=== PATIENT | female | born 1970 | race Caucasian/White ===

== ENCOUNTER 2019-03-23 13:42 | Inpatient (IN) | payer BC, OTHER ==
[2019-03-23] VITALS (20 sets, daily range): BP systolic 65–101; BP diastolic 38–67
[~2019-03-23] VITALS: Ht 165.1 cm; Wt 94.4 kg
--- NOTE | ~2019-03-23 | EMS ---
[facility] [address] [place] [address] EMS Patient Care Report Name: GILES CORTES Room #: 241-P ADM IN M.R.#: [id number] Admission: 03/23/19 Attend Phys: Chikis Mera MD Discharge: Date of : 70 Report #: [id number] THIS REPORT FOR: //name// Report Transmitted: 03/24/2019 08:58 EMS Care Summary [place], [place]/[facility] Incident [id number] @ 03/23/2019 13:03 Incident Location [id number] [place] [address] Patient GILES CORTES Female, 48 Years 1970 Patient Address [id number] [place] [address] Patient History Hypertension,Type 2 Diabetes, Patient Allergies No known allergies, Patient Medications Pravastatin, Metformin, Insulin, Chief Complaint Hot and chills Disposition Transported No Lights/[place] Reason Sick Person Transported To [facility] Narrative Arrived on scene for a 48 y/o female that is standing naked in the kitchen of the apt. Pt said that she hasn't been feeling well for a couple of days. Pt [facility] [address] [place] [address] EMS Patient Care Report Name: GILES CORTES Room #: 241-P ADM IN MJozef.#: [id number] Admission: 03/23/19 Attend Phys: Chikis Mera MD Discharge: Date of : 70 Report #: [id number] said that the last time she felt like this, she was septic from a UTI. Pt said that was earlier this month and she was admitted to the hospital because of this. Pt said that she is having no pain and currently not running a fever but the symptoms feel the same. Pt said that she does have dark urine with a strong odor with it. See Pt Assessment UTI See Flow Chart. Had the Pt put on some clothes. Moved the Pt to the cot. Transported non-emergent without incidents. Pt moved from cot to hospital bed with assistance. Transferred care to receiving facility. Initial Vitals @13:16P: 142,BP: 100/70, @13:34P: 129,R: 24,BP: 82/57,Pain: 0/10,GCS: 15,Revised Trauma: 11,SD Suspected: false @13:30P: 128,R: 24,BP: 80/51,GCS: 15,SpO2: 95,Revised Trauma: 11, Assessments @13:11MENTAL:Person Oriented,Time Oriented,Event Oriented,Place Oriented,SKIN:Pale,HEENT:Head/Face: No Abnormalities,Eyes: No Abnormalities,Neck/Airway: No Abnormalities,LUNG SOUNDS:General: Diarrhea,Left Upper: No Abnormalities,Right Upper: No Abnormalities,Left Lower: No Abnormalities,Right Lower: No Abnormalities,ABDOMEN:General: Diarrhea,Left Upper: No Abnormalities,Right Upper: No Abnormalities,Left Lower: No Abnormalities,Right Lower: No Abnormalities,PELVIS//GI:Pelvis GUOther,EXTREMITIES:Left Arm: No Abnormalities,Right Arm: No Abnormalities,Left Leg: No Abnormalities,Right Leg: No Abnormalities,PULSE:NEURO:No Abnormalities, Impression Urinary Tract Infection (UTI) Procedures @13:11ALS AssessmentResponse: Unchanged@13:20Saline Lock 0cc (20 ga) Site: Antecubital-LeftResponse: UnchangedFailed@13:183-Lead ECGResponse: Unchanged Timeline 13:01,Call Received 13:01,Dispatch Notified 13:03,Dispatched 13:05,En Route 13:10,On Scene 13:11,At Patient 13:11,ALS Assessment,Response: Unchanged [facility] [address] [place] [address] EMS Patient Care Report Name: GILES CORTES Room #: 241-P ADM IN .R.#: [id number] Admission: 03/23/19 Attend Phys: Chikis Mera MD Discharge: Date of : 70 Report #: [id number] 13:16,BP: 100/70 M,PULSE: 142,RR: R,SPO2: Ox,ETCO2: ,BG: ,PAIN: ,GCS: , 13:18,3-Lead ECG,Response: Unchanged 13:20,Saline Lock 0cc 20 ga Site: Antecubital-Left,Response: UnchangedFailed, 13:22,Depart Scene 13:30,BP: 80/51 M,PULSE: 128,RR: 24 R,SPO2: 95 Ox,ETCO2: ,BG: ,PAIN: ,GCS: 15, 13:34,BP: 82/57 M,PULSE: 129,RR: 24 R,SPO2: Ox,ETCO2: ,BG: ,PAIN: 0,GCS: 15, 13:36,At Destination 13:54,Call Closed Disclaimer v1.1 Copyright 2019 [employer] This EMS Care Summary contains data elements from the applicable legal record (which may be displayed differently). It is designed to provide pertinent information for the following purposes: continuity of care, clinical quality, and state data reporting. The complete legal record is available to ED staff and administrators of the receiving hospital in [employer]'s Patient Tracker. All data is provided "as is."
[2019-03-23 14:25] LABS: ABSOLUTE NEUTROPHILS 4.8 thou/uL (1.4-8.2); BASOPHILS 0.3 % (0.0-2.0); EOSINOPHILS 0.2 % (0.0-3.0); HEMATOCRIT 38.9 % (37.0-47.0); HEMOGLOBIN 12.9 gm/dL (12.0-15.0); MCH 33.4 pg (26.0-34.0); MCHC 33.1 g/dL (28.0-37.0); MCV 100.7 fL (80.0-100.0); PLATELET COUNT 120 thou/uL (150-400); POLYS 93.5 % (36.0-66.0); RBC 3.86 mil/uL (4.20-5.00); RDW 14.3 % (10.5-14.5); WBC 5.2 thou/uL (4.0-11.0)
[2019-03-23 14:34] LABS: CALCIUM 9.2 mg/dL (8.5-10.1); CREATININE 1.1 mg/dL (0.6-1.0); POTASSIUM 3.4 mmol/L (3.5-5.1)
[2019-03-23 14:40] LABS: ALBUMIN 2.9 g/dL (3.4-5.0); TOTAL BILIRUBIN 1.3 mg/dL (<0.1-1.0)
[2019-03-23] MEDS ORDERED: GLUCOPHAGE1000 MG PO (15:20)
[2019-03-23] MEDS ORDERED: EFFEXOR XR75 MG PO (15:20)
[2019-03-23] MEDS ORDERED: MAGOX 400400 MG PO (15:21)
[2019-03-23] MEDS ORDERED: PRAVACHOL20 MG PO (15:21)
[2019-03-23] MEDS ORDERED: LANTUSSOLASTAR SUBQ (15:21)
[2019-03-23] MEDS ORDERED: VITAMIN B-12500 MCG PO (15:22)
[2019-03-23 16:56] LABS: URINE BILIRUBIN 2+ (Negative); URINE BLOOD 2+ (Negative); URINE CLARITY CLEAR; URINE COLOR YELLOW; URINE GLUCOSE-RANDOM* 2+ (Negative); URINE KETONES 1+ (Negative); URINE NITRITE-REFLEX NEGATIVE (Negative); URINE PROTEIN (DIPSTICK) 2+ (Negative)
[2019-03-23 16:59] LABS: ICTOTEST (BILI CONFIRMATORY) Positive (Negative); URINE LEUKOCYTES-REFLEX 2+ (Negative)
[2019-03-23 17:07] LABS: BACTERIA-REFLEX >30 Many /HPF (None Seen); CASTS None Seen /LPF (None Seen); CRYSTALS None Seen /LPF (None Seen); SQUAMOUS 0-3 Few /LPF (0-3); URINE WBC-REFLEX >25 Many /HPF (0-5); YEAST-REFLEX Present (None Seen)
--- NOTE | 2019-03-23 17:58 | NUR ---
ATTEMPTED TO CALL REPORT AT 5079. NURSE NOT AVAILABLE AND IS TO CALL BACK
[2019-03-23 19:45] LABS: MAGNESIUM 1.4 mg/dL (1.8-2.4)
--- NOTE | 2019-03-23 20:00 | NUR ---
PT ADMITTED to ICU room 241 from ED. Hypotensive with SBP 60-70's. EP SPECIALIST notified and orders received. Pt alert, oriented x4. Monitor sinus rhythm.
[2019-03-24] VITALS (55 sets, daily range): BP systolic 73–148; BP diastolic 44–126
--- NOTE | 2019-03-24 06:41 | NUR ---
Slowly progressing toward goals. Map has remained > 60 without starting vasopressors. Urine output has increased from 10-20 cc/hr at admit to 40-50cc/hr. Pt had 900 cc total urine output for shift. Urine initially very cloudy with sediment but is beginning to clear. Insulin gtt titrated to keep blood sugar between 90-150, able to achieve this goal at 0500. Pt has slept well, has remained oriented x4 when awakened. No fever overnight. Skin intermittently clammy.
[2019-03-24 09:22] LABS: HEMATOCRIT 34.2 % (37.0-47.0); HEMOGLOBIN 11.5 gm/dL (12.0-15.0); MCH 33.8 pg (26.0-34.0); MCHC 33.5 g/dL (28.0-37.0); MCV 100.9 fL (80.0-100.0); RBC 3.39 mil/uL (4.20-5.00); RDW 14.6 % (10.5-14.5); WBC 7.4 thou/uL (4.0-11.0)
[2019-03-24 09:31] LABS: CALCIUM 8.7 mg/dL (8.5-10.1); CREATININE 0.8 mg/dL (0.6-1.0)
[2019-03-24 10:20] LABS: PHOSPHORUS 2.4 mg/dL (2.5-4.9)
--- NOTE | 2019-03-24 10:21 | NUR ---
VASCULAR ACCESS CONSULTED FOR PICC LINE BUT AFTER REVIEW OF MEDS, DISCUSSED WITH PTRISKS AND BENEFITS, MIDLINE MORE APPROPRIATE.PT VERBALIZED UNDERSTANDING AND CONSENT. LEONARDO BASILIC WAS WIDELY PATENT WITH USG. 4FR POWER MIDLINE TRIMMED TO 14CM INSERTED PER HOSPITAL P&P TO 0CM EXTERNAL,BRISK BR. ML RELEASED FOR IMMEDIATE USE PER PROTOCOL.
[2019-03-24 10:25] LABS: % SATURATION 21 % (20-39); IRON 38 ug/dL (50-170); TIBC 184 ug/dL (250-450)
--- NOTE | 2019-03-24 12:08 | 2DMMODE ---
[facility] [address] [place] [address] 2 D/M-MODE ECHOCARDIOGRAM Name: GILES CORTES Room #: 241-P ADM IN ..#: [id number] Admission: 03/23/19 Attend Phys: Chikis Mera Discharge: Date of : 70 Report #: [id number] THIS REPORT FOR: //name// APPROVED REPORT Study performed: 03/24/2019 11:18:02 EXAM: Comprehensive 2D, Doppler, and color-flow Echocardiogram Patient Location: ICU Room #: 241 Status: routine BSA: 1.95 HR: 86 bpm BP: 93/64 mmHg Rhythm: NSR Other Information Study Quality: Good Indications Fever, sepsis. Hx: DM, HTN, tob abuse. 2D Dimensions RVDd: 28.55 mm IVSd: 10.69 (7-11mm) LVOT Diam: 20.98 (18-24mm) LVDd: 50.66 mm PWd: 7.56 (7-11mm) Ascending Ao: 30.41 (22-36mm) LVDs: 44.09 (25-40mm) Aortic Root: 32.27 mm Volumes Left Atrial Volume (Systole) Single Plane 4CH: 41.59 mL Single Plane 2CH: 56.07 mL LA ESV Index: 27.00 mL/m2 Aortic Valve AoV Peak Shayan.: 1.22 m/s AO Peak Gr.: 5.95 mmHg LVOT Max P.29 mmHg LVOT Max V: 0.76 m/s ROMA Vmax: 2.15 cm2 Mitral Valve E/A Ratio: 1.7 MV Decel. Time: 130.24 ms MV E Max Shayan.: 0.97 m/s [facility] [address] [address] 2 D/M-MODE ECHOCARDIOGRAM Name: GILES CORTES Room #: [address] [place] [address] IN [facility].#: [id number] Admission: 03/23/19 Attend Phys: Chikis Mera Discharge: Date of : 70 Report #: [id number] MV A Shayan.: 0.58 m/s MV PHT: 37.77 ms IVRT: 57.67 ms Pulmonary Valve PV Peak Shayan.: 0.99 m/s PV Peak Gr.: 3.92 mmHg Pulmonary Vein P Vein S: 0.59 m/s P Vein D: 0.41 m/s P Vein S/D Ratio: 1.44 Tricuspid Valve TR Peak Shayan.: 2.39 m/s RAP Estimate: 10.00 mmHg TR Peak Gr.: 23.00 mmHg PA Pressure: 33.00 mmHg Left Ventricle The left ventricle is normal size. There is hypokinesis of the inferior wall. There is normal left ventricular wall thickness. Left ventricular systolic function is mildly decreased. LVEF is 45%. Right Ventricle The right ventricle is normal size. The right ventricular systolic function is normal. Atria The left atrium size is normal. The right atrium size is normal. Aortic Valve The aortic valve is normal in structure. No aortic regurgitation is present. There is no aortic valvular stenosis. Mitral Valve The mitral valve is normal in structure. Moderate mitral regurgitation. Tricuspid Valve The tricuspid valve is normal in structure. Mild tricuspid regurgitation. Estimated PAP is 30-35mmHg. Pulmonic Valve The pulmonary valve is normal in structure. Trace pulmonic regurgitation. [facility] [address] [place] [address] 2 D/M-MODE ECHOCARDIOGRAM Name: GILES CORTES Room #: 241-P [facility] IN M.R.#: [id number] Admission: 03/23/19 Attend Phys: Chikis Mera Discharge: Date of : 70 Report #: [id number] Great Vessels The aortic root is normal in size. The ascending aorta is normal in size. IVC is normal in size and collapses <50% with inspiration. Pericardium There is no pericardial effusion. <Conclusion> The left ventricle is normal size. There is normal left ventricular wall thickness. Left ventricular systolic function is mildly decreased. There is hypokinesis of the inferior wall. The right ventricle is normal size. The left atrium size is normal. The aortic valve is normal in structure. Moderate mitral regurgitation. Mild tricuspid regurgitation. Estimated PAP is 30-35mmHg. <ELECTRONICALLY SIGNED> By: Ramon Lee MD 03/24/19 1208 07 07 Ramon Lee MD /INF
--- NOTE | 2019-03-24 13:05 | NUR ---
CM ASSESSMENT: CASE OPENED FOR DC PLANNING. CLINICAL INFO REVIEWED. PT ADMITTED WITH SEPSIS. PT LIVES WITH SPOUSE AND IS CURRENTLY NOT WORKING AND ON SPOUSE'S INSURANCE. INDEPENDENT WITH ADLS, NO DME. HX DIABETES AND HTN, FOLLOWS AT [facility] FOR PRIMARY CARE AND WILL CONTINUE POST DC. WILL FOLLOW TO ASSIST WITH DC NEEDS.
--- NOTE | 2019-03-24 15:11 | NUR ---
Assess due to dx urosepsis. Pt with hx poor controlled diabetes for over 15 yrs per pt. A1C was indicated 11.7. Unintentional wt loss ~15 lb and fatigue likely due to hyperglycemia and acute illness. Starting on IV abx. On insulin drip. Appetite better and ordering meals. Physician has indicated moderate protein calorie malnutrition: RD will defer this dx. Consider low nutrition risk. RD education provided with education materials. Recommend endocronologist consult.
--- NOTE | 2019-03-24 15:12 | EKG ---
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
--- NOTE | 2019-03-24 18:15 | NUR ---
PT IS ALERT AND ORIENTED X4. LUNGS ARE CLEAR TO DIMINISHED. ON 3LITERS NASAL CANULA. EATING A CARB CONTROL DIET. CONSULTS ORDERED TODAY. VS STABLE. SINUS RHYTHM ON THE NATURAL FOODS CLERK. BAZAN TO DD WITH ORANGE COLOR URINE. TAKEN TO CAT SCAN FOR DIAGNOSTIC TESTING. FAMILY AT BEDSIDE FOR SUPPORT. BATH DONE THIS EVENING. TRANSFER ORDERS IN THE COMPUTER AWAITING A BED FOR TRANSFER.
--- NOTE | 2019-03-24 21:17 | NUR ---
Pt c/o of pressure radiating down left shoulder to elbow. Pt feels slightly SOA though on 2L canula and sat 100. Precinct Commanding Officer police liaison officer paged.
--- NOTE | 2019-03-24 22:27 | NUR ---
FOLLOW UP ON CHEST PAIN: Stat EKG done at [address] elevation or changes. NTG 0.4 mg sublingual given at 2124 and 2129 with decrease in chest/left arm pressure down to 2 from 4. Frankie Hatch NP also notifed at 2129 of change in pt condition, orders received. Pt given Morphine 4 mg IVP at 2137 with complete relief of chest/left arm discomfort by 2144. Pt given Tylenol for headache during this time period with adequate relief obtained. Troponin drawn at 2144 per orders and results called to Frankie Hatch. Dr. Flores returned page at 2154 and updated on events and pt. status. He requested not to be called troponin since it has been elevated since admit. Pt now sleeping comfortably, VS stable, monitor sinus tach. Status changed from med-surg tele to critical care tel per Frankie Hatch RN.
[2019-03-25] VITALS (22 sets, daily range): BP systolic 11–120; BP diastolic 37–89
--- NOTE | 2019-03-25 02:46 | NUR ---
Pt continues to rest without c/o. Monitor sinus rhythm. No further episodes of chest pain. Pt is hypotensive, SBP 80's and MAP in high 50's, but asymptomatic. Urine output > 30 cc/hr.
--- NOTE | 2019-03-25 11:32 | EKG ---
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 : 1970 Requested By: Jesse Lund Order Number: [id number] MD: Ezequiel Ravi Measurements Intervals [place] Rate: 120 P: 44 MN: 141 QRS: -11 QRSD: 100 T: QT: 327 QTc: 462 Interpretive Statements Sinus tachycardia Low voltage, extremity leads Nonspecific repol abnormality, diffuse leads Compared to ECG 03/24/2019 10:29:55 Early repolarization now present Sinus rhythm no longer present Electronically Signed On 03-25-2019 11:32:27 CDT by Ezequiel Ravi [email or web address] <ELECTRONICALLY SIGNED> By: Ezequiel Ravi MD 03/25/19 1132 16 16 Ezequiel Ravi MD /EPI
--- NOTE | 2019-03-25 13:23 | NUR ---
ASSUMED CARE OF PT AT 0700, PT IS A/O TIMES FOUR, DEIES PAIN OR DISCOMFORT. VSS, PT HAS BEEN AFIBRILE. ORDERS RCVD TO TRANSFER PT OUT OF ICU. REPORT GIVEN TO ACCEPTING NURSE. PT TRANSPORTED AND SETTLED IN NEW ROOM.
--- NOTE | 2019-03-25 16:45 | NUR ---
PT TO THE UNIT FROM THE ICU - ORIENTED TO BEDSPACE. ROCÍO DIET AND FLUIDS, MEDS PER AUG. - AMBULATING IN THE HALLS INDEPENDANTLY - STEADY ON FEET. NO CO'S OF PAIN OR NAUSEA. ASSESSMENT CHARTED - NO CO'S AT THE PRESNET TIME.
--- NOTE | 2019-03-26 03:03 | NUR ---
ASSUMED CARE FROM A DAY SHIFT PT UP TO BATHROOM VOIDING WITHOUT DIFF OR PAIN, CARDIAC MONTIOR SHOWS NSR , DISCUSSED PLAN OF CARE AND AGREEABLE AND VERBALIZED UNDERSTANDING. RESTING WELL THROUGHOUT HOURLY ROUNDS , WILL EPORT CHANGES OR ABNORMAL FINDINGS.
[2019-03-26 04:30] VITALS: BP 122/72
[2019-03-26 05:23] LABS: ABSOLUTE NEUTROPHILS 3.1 thou/uL (1.4-8.2); BASOPHILS 0.4 % (0.0-2.0); EOSINOPHILS 0.7 % (0.0-3.0); HEMATOCRIT 31.5 % (37.0-47.0); HEMOGLOBIN 10.4 gm/dL (12.0-15.0); LYMPHOCYTES 15.7 % (24.0-44.0); MCH 33.3 pg (26.0-34.0); MCHC 33.1 g/dL (28.0-37.0); MCV 100.9 fL (80.0-100.0); PLATELET COUNT 105 thou/uL (150-400); POLYS 72.2 % (36.0-66.0); RBC 3.12 mil/uL (4.20-5.00); RDW 14.3 % (10.5-14.5); WBC 4.3 thou/uL (4.0-11.0)
[2019-03-26 06:57] LABS: ALBUMIN 2.1 g/dL (3.4-5.0); CALCIUM 7.8 mg/dL (8.5-10.1); CREATININE 0.6 mg/dL (0.6-1.0); MAGNESIUM 1.5 mg/dL (1.8-2.4); POTASSIUM 3.6 mmol/L (3.5-5.1); TOTAL BILIRUBIN 0.6 mg/dL (<0.1-1.0); TOTAL PROTEIN 5.1 g/dL (6.4-8.2)
[2019-03-26 08:20] VITALS: BP 136/76
[2019-03-26 12:00] VITALS: BP 100/53
[2019-03-26 13:29] LABS: ABSOLUTE RETIC COUNT 0.0628 10^6/uL; OBSERVED RETIC COUNT 1.99 % (0.6-2.6)
[2019-03-26 13:42] LABS: APTT 31.2 Seconds (24.5-32.8); PROTIME 10.8 Seconds (9.3-11.4)
[2019-03-26 14:39] LABS: URINE BILIRUBIN NEGATIVE (Negative); URINE BLOOD TRACE (Negative); URINE CLARITY CLEAR; URINE COLOR YELLOW; URINE GLUCOSE-RANDOM* NEGATIVE (Negative); URINE KETONES NEGATIVE (Negative); URINE LEUKOCYTES-REFLEX TRACE (Negative); URINE NITRITE-REFLEX NEGATIVE (Negative); URINE PROTEIN (DIPSTICK) NEGATIVE (Negative); URINE SPECIFIC GRAVITY <= 1.005 (1.005-1.035)
[2019-03-26 16:00] VITALS: BP 124/82
--- NOTE | 2019-03-26 16:45 | NUR ---
ASSUMED CARE AT 0700, SHIFT ASSESSMENT DONE, MEDS GIVEN, VSS. DENIES ANY PAIN, NAUSEA, VOMITING. UP AD AVNI. RECEIVING IV FULIDS. NSR ON TELE, ROOM AIR. HAD A CT RECENTLY, POSSIBLY GOING TO [facility] TOMORROW VS WEDNESDAY. LEFT THE UNIT FOR AN HOUR PER DR EUBANKS, CAME OFF TELE AND IV. MG 1.5, REPLACEMENT IN PLACE. WILL CONTINUE TO ASSESS AND ASSIST WITH ADLs NEEDED.
[2019-03-26 19:37] VITALS: BP 118/60
[2019-03-26 23:05] LABS: HEMOGLOBIN 10.3 g/dL (11.1-15.9)
--- NOTE | 2019-03-27 03:25 | NUR ---
A/O X 4.UP INDEPENDENTLY.DENIES PAIN AND SOB.AFEBRILE SO FAR.POSSIBILITY OF CARDIAC CATH PROCEDURE.MONITOR SHOWS SINUS RHYTHM,SINUS TACHY.WILL MONITOR AND CONTINUE POC.
[2019-03-27 04:42] VITALS: BP 142/90
[2019-03-27 05:05] LABS: HEMATOCRIT 30.1 % (37.0-47.0); HEMOGLOBIN 10.2 gm/dL (12.0-15.0); MCH 33.7 pg (26.0-34.0); MCHC 33.8 g/dL (28.0-37.0); MCV 99.7 fL (80.0-100.0); PLATELET COUNT 110 thou/uL (150-400); RBC 3.02 mil/uL (4.20-5.00); RDW 14.1 % (10.5-14.5); WBC 3.8 thou/uL (4.0-11.0)
[2019-03-27 07:05] LABS: ABSOLUTE NEUTROPHILS 2.2 thou/uL (1.4-8.2); ANISOCYTOSIS SLIGHT; METAMYELOCYTES 1 %; MYELOCYTES 2 %
--- NOTE | 2019-03-27 07:57 | HC ---
[facility] [place] [address] CONSULTATION Name: GILES CORTES Room #: 211-P ADM IN M.R.#: [id number] Admission: 03/23/19 Attend Phys: Chikis Mera MD Discharge: Date of : 70 Report #: [id number] THIS REPORT FOR: //name// CC: Pierce Momin PODIATRIST FAM physician/PCP Ezequiel Mera MD REQUESTING PHYSICIAN: Chikis Mera MD REASON FOR CONSULTATION: Thrombocytopenia. HISTORY OF PRESENT ILLNESS: The patient is a pleasant 48-year-old female who had been at [facility] about a month ago for urosepsis and then recently had been at home and began having the same symptoms of fatigue, malaise, anorexia, dysuria. Her urine was darker than usual and also did not smell as good, came to the hospital for evaluation. Here, on admission, her platelet counts were 120 on 03/23/2019, 96 on 03/24/2019 and today, this went to 105. During the same time, her white count has been normal range around 43. Hemoglobins run around 10.4 with an MCV of 100.9. Differential showed an increase in segs and neutrophils. During the same time, her lab has also been notable for increase in transaminases, ALT of 76, AST 56, alkaline phosphatase 144, total bilirubin has been normal at 0.6, magnesium low at 1.5. Albumin low at 2.1. C-reactive protein quite elevated at 70.4. Sed rate elevated at 110. Also, note that she is macrocytic and red cells with an MCV of 100.9. Iron was slightly low at 38, TIBC low at 184, percent saturation 21, borderline low. These could be consistent with either mild iron deficiency or anemia of chronic illness. Folate was normal at 14. B12 normal at 709. Note that immature platelet fraction was 3.4, which is normal range, so some argue maybe it should be a little bit higher for her degree of mild thrombocytopenia but unclear. REVIEW OF SYSTEMS: The patient had not really had any dysuria. She said her urine had been dark and smelled a bit stronger than usual. Maybe some slight loose stools, no blood in her urine, no blood in her stool. No headache, no sore throat. No trouble moving, although she felt quite fatigued when walking around. Does have occasional bruising, but that is mostly arms and legs, usually fairly small, smaller than 1/4 or 1/2 dollar. No unusual bruising on her upper chest or neck. No recent nosebleeds. Weight has been down, she thinks, about 15 pounds, unintentionally. PAST MEDICAL HISTORY: Notable for the urosepsis, also the recent concern for a non-ST elevated [place]. Note that her echo is little bit off with a decreased inferior wall motion and there is some mild valve regurgitation. Past history is also of hypertension, diabetes, not very well controlled with reported hemoglobin A1c of 11.7. 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 Also had cholecystectomy and tonsillectomy. FAMILY HISTORY: Father had a pacemaker in his 20s, also a colostomy, she is not sure why. Mother has diabetes and knee troubles. No siblings, no children. SOCIAL HISTORY: Smokes about a pack and a half a day. Alcohol, rare to none. I think she declined street drugs or denied street drugs. 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 Has not been on disability, just is not currently working. I think she lives in the [facility]. PHYSICAL EXAMINATION: VITAL SIGNS: Height is 5 feet 5 inches, 165.1 cm; weight is 193.5 pounds or 87.8 kilograms. Recent blood pressure is 136/76, O2 sat 97%, pulse of 91. Current temperature 98.7, though it was up to 101.8 at 4:30 this morning and then 102 orally last night at 1742. GENERAL: The patient is alert and conversant, appears to be a reliable historian. HEENT: Oropharynx clear. Eyes symmetrical. Face symmetrical. NEUROLOGIC: Speech and thought pattern normal. SKIN: Has normal temperature. No obvious bruising except for IV sites, especially in her right arm. LYMPHATICS: No enlarged lymph nodes in the supraclavicular or cervical region. Note, she does have some very small lymph nodes beneath the right arm only. These may have been from multiple IVs at [facility], will bear watching. ABDOMEN: Slightly obese, nontender. No masses. EXTREMITIES: Without clubbing, cyanosis or edema. The patient's range of motion and inspection of muscles appears to be normal. MEDICATIONS: At this time, in the hospital include ciprofloxacin 250 b.i.d., began today; aspirin 81 mg daily; Tylenol 650 p.r.n.; nitroglycerin 1 tablet p.r.n. sublingual; insulin on a sliding scale; flu vaccine to be given; venlafaxine 75 mg daily; did receive a dose of cefepime on the and ____ today on the . MICROBIOLOGY: Urine is growing E. coli, sensitive to Cipro. IMAGING: Includes a CT for renal stone protocol that showed mildly prominent perinephric stranding. No definite hydronephrosis or obstructing stone. Portable chest x-ray showed no acute process. ASSESSMENT AND PLAN: 1. Thrombocytopenia, mild at 110-105 range. No prior knowledge of low platelets. No unusual bleeding, does have some slight bruises occasionally which do not seem extreme. Note, the patient has normal B12 folate. Iron may [address] [address] CONSULTATION Name: GILES CORTES Room #: [facility] ADM IN M.R.#: [id number] Admission: 03/23/19 Attend Phys: Chikis Mera MD Discharge: Date of : 70 Report #: [id number] be low range. We will check coags. This may be related to urosepsis or probably her liver function. We will also check a TSH and a peripheral smear. We will also ask to get records from [facility] and also [facility]. At this time, they are not dangerous. 2. Macrocytic anemia. We will check TSH and retic count. 3. Urosepsis due to Escherichia coli. No change to antibiotics with Cipro. 4. Question of mhh-LK-ekyxshnw myocardial infarction with decreased inferior wall motion on echo. Note that Dr. Ravi/Cardiology plans angiogram when better. 5. Diabetes type 2, appears to be poorly controlled. Does not check sugars very often. Agree with sliding scale insulin. We will defer to others. 6. Hypertension. Meds per others. 7. Tobaccoism. Encourage cessation, especially given her hypertension and diabetes. 8. Hyperlipidemia. Defer statins and dietary changes to others. 9. Obesity. Encouraged weight loss. 10. Mood. Continues Effexor. 11. Right axillary lymph nodes, most likely reactive. We will bear watching and followup. 12. Elevated liver function tests. We will need to follow for resolution. <ELECTRONICALLY SIGNED> By: Odilon Machuca MD 03/27/19 0757 1202 2248 Odilon Machuca MD /nt
[2019-03-27 08:00] VITALS: BP 128/77
[2019-03-27 09:36] LABS: CHOLESTEROL 117 mg/dL (<200); HDL CHOLESTEROL 20 mg/dL (>40); LDL CHOLESTEROL 74 mg/dL (<100); TC:HDL 5.9 Ratio (Not establshd); TRIGLYCERIDE 115 mg/dL (<150); VLDL 23 mg/dL (<40)
[2019-03-27 10:17] LABS: ANION GAP 10 mmol/L (7-16); BUN 4 mg/dL (7-18); CALCIUM 8.2 mg/dL (8.5-10.1); CHLORIDE 107 mmol/L (98-107); CO2 25 mmol/L (21-32); CREATININE 0.5 mg/dL (0.6-1.0); GLUCOSE 143 mg/dL (74-106); POTASSIUM 3.1 mmol/L (3.5-5.1); SGOT 43 U/L (15-37); SGPT 61 U/L (30-65); SODIUM 142 mmol/L (136-145); TOTAL BILIRUBIN 0.5 mg/dL (<0.1-1.0); TOTAL PROTEIN 5.3 g/dL (6.4-8.2)
--- NOTE | 2019-03-27 10:46 | HC ---
[facility] [place] [address] CONSULTATION Name: GILES CORTES Room #: 211-P ADM IN M.R.#: [id number] Admission: 03/23/19 Attend Phys: Chikis Mera MD Discharge: Date of : 70 Report #: [id number] THIS REPORT FOR: //name// CC: AUNG physician/PCP Chikis Mera DATE OF SERVICE: 03/24/2019 INFECTIOUS DISEASE CONSULTATION REASON FOR CONSULTATION: I was asked to evaluate concerning sepsis. HISTORY OF PRESENT ILLNESS: The patient is a 48-year-old underlying history of diabetes, hypertension, who presents with fever, chills, hypotension to the Emergency Room on 03/23/2019. She has poorly controlled diabetes. She has been on medication, although does not check her sugars at home. Three weeks ago, she was hospitalized at [facility] with urosepsis and discharged on 03/08/2019. Received IV antibiotics and dismissed on oral antibiotics for another 4-5 days. She could not recall the medication. Following completion of her antibiotics, she felt well. She does not recall any imaging of her abdomen during that hospital stay. She did have some cardiac ischemia and underwent echocardiogram and electrocardiogram. She reports no cardiac followup recommended. Her last hemoglobin A1c was 11.7. She is obese. She has had urinary tract infections when she was younger, but no other issues with this. She has had no history of nephrolithiasis. In the remote past, she had hysterectomy, bilateral salpingo-oophorectomy, where she was diagnosed with 40-pound ovarian tumor. She states that this was benign. REVIEW OF SYSTEMS: She has had no dysuria. She did have some urinary hesitancy and inability to void prior to her admission. Denied any back or flank pain. She was nauseated. She had some loose stools. No blood in her urine. Denies any cough or sputum production. She has had no rashes or decubiti. Denies any adenopathy. No psychiatric issues. Full 10-point review of system was negative other than what has been described above. ALLERGIES: None known. MEDICATIONS: As noted on her MAR including Effexor, Glucophage, Lantus insulin, Pravachol, magnesium oxide, and vitamin B12. She was started on IV fluids at admission and was given cefepime. PAST MEDICAL HISTORY: Diabetes, hypertension, urinary tract infection, previous hysterectomy, bilateral salpingo-oophorectomy, cholecystectomy, tonsillectomy. FAMILY HISTORY: Noncontributory. [address] [address] CONSULTATION Name: GILES CORTES Room #: 211-P [facility] IN .R.#: [id number] Admission: 03/23/19 Attend Phys: Chikis Mera MD Discharge: Date of : 70 Report #: [id number] SOCIAL HISTORY: Lives with her , smoker of cigarettes. No significant alcohol intake or IV drug use. PHYSICAL EXAMINATION: VITAL SIGNS: Afebrile, heart rate 72, respiratory rate 18 on 3 liters of oxygen per nasal cannula, blood pressure 93/64. GENERAL: She was moderately obese. SKIN: Without rash or decubitus. She did have a tattoo to her lower back. No palpable adenopathy. EYES: Without scleral icterus. MOUTH: Without mucositis. NECK: Supple, with no thyromegaly or mass. LUNGS: Clear. HEART: Regular, without murmur, gallop or rub. ABDOMEN: Soft, nontender, no hepatosplenomegaly or mass. No CVA tenderness. GENITOURINARY: External genitalia unremarkable with no mass or lesion. She had indwelling Rowe catheter. RECTAL EXAMINATION: Not performed. EXTREMITIES: Without clubbing, cyanosis or edema. Pulses were full throughout. NEUROLOGIC: Cranial nerves intact. Strength in upper and lower extremities was normal. Mood was normal. LABORATORY STUDIES: Sodium 140, potassium 4, bicarbonate 25, creatinine 0.8. Blood glucose has been running 155-384, AST 58, ALT 43, alkaline phosphatase 240, bilirubin 1.3, albumin at 2.9. Troponin is 1.15. Hemoglobin 11.5, WBC 7.4 with unremarkable differential, platelet count 96,000. ESR was 97. Rheumatoid factor is negative. B12 and folate are normal. Cortisol is 77. Urinalysis, many wbc's, many bacteria, protein was 2+, yeast was present. Blood and urine cultures are pending. Chest x-ray was clear. IMPRESSION: A 48-year-old diabetic poorly controlled with recurrent urinary tract infection, having completed her course of therapy 10 days ago. We would be concerned about possible upper tract abnormality. She has had a previous hysterectomy and ovarian tumor resected. In addition, the patient has poorly controlled diabetes. Her sepsis is better controlled now with IV fluids. She has evidence of cardiac ischemia, being further evaluated by Cardiovascular medicine. RECOMMENDATIONS: We will continue cefepime full dose, pending cultures of blood and urine. Would obtain records from [facility] for their previous workup and cultures. Continue with IV fluids. Further imaging with CT scan of the abdomen and pelvis to ensure no ureteral obstruction or further [address] [address] CONSULTATION Name: GILES CORTES Room #: 211-P [facility] IN [facility].#: [id number] Admission: 03/23/19 Attend Phys: Chikis Mera MD Discharge: Date of : 70 Report #: [id number] complications from urinary tract infection. Serial laboratory studies including CMP to follow her liver function tests and creatinine. <ELECTRONICALLY SIGNED> By: Pierce Gordon MD 03/27/19 1046 [id number] Pierce Gordon MD /
[2019-03-27 11:38] VITALS: BP 141/81
[2019-03-27 13:11] LABS: ANA INTERPRETATION Negative (Negative)
[2019-03-27 16:44] VITALS: BP 136/77
--- NOTE | 2019-03-27 17:28 | NUR ---
VSS REMAINS NSR. T MAX TODAY 98.2, LUNGS CLEAR RA SAT IS 96%, UP IN ROOM AND HALLS AND TOLERATED WELL WITHOUT C/O CHEST PAIN. WILL CONTINUE TO MONITER AND CARE FOR PT PER PLANOF CARE
[2019-03-27 19:50] VITALS: BP 136/79
[2019-03-27 23:44] VITALS: BP 115/54
[2019-03-28] VITALS (7 sets, daily range): BP systolic 113–139; BP diastolic 66–83
--- NOTE | 2019-03-28 02:59 | NUR ---
ASSESSMENT: PT REMAIN ALERT AND ORIEN TIMES FOUR. UP AD AVNI. DENIES PAIN. STILL LOW GRADE TEMP THUS FAR THIS SHIFT. NPO AT ND FOR POSSIBLE CATH. SLOW PROGRESS TOWARDS DC GOALS, WILL CONTINUE TO MONITOR.
[2019-03-28 05:43] LABS: HEMATOCRIT 31.6 % (37.0-47.0); HEMOGLOBIN 10.4 gm/dL (12.0-15.0); MCHC 33.1 g/dL (28.0-37.0); MCV 99.9 fL (80.0-100.0); PLATELET COUNT 130 thou/uL (150-400); RBC 3.16 mil/uL (4.20-5.00); WBC 4.4 thou/uL (4.0-11.0)
[2019-03-28 08:45] LABS: ABSOLUTE NEUTROPHILS 2.7 thou/uL (1.4-8.2); METAMYELOCYTES 2 %
--- NOTE | 2019-03-28 08:45 | NUR ---
RECEIVED FROM PUBLIC FINANCE SPECIALIST. VSS NSR R GROIN SITE WITHOUT HEMATOMA OR BRUIT. INSTRUCTED BEDREST X 3 HOURS. SEE DATA FLOW SHEET FOR FREQUENT VS AND GROIN CHECKS. WILL CONTINUE TO MONITER AND CARE FOR PTPER PLAN OF CARE
[2019-03-28 08:46] LABS: PLATELET ESTIMATE NORMAL
--- NOTE | 2019-03-28 09:46 | CATHLAB ---
[facility] [address] [place] [address] INVASIVE PROCEDURE REPORT Name: GILES CORTES Room #: 211-P ADM IN .R.#: [id number] Admission: 03/23/19 Attend Phys: Chikis Mera Discharge: Date of : 70 Report #: [id number] THIS REPORT FOR: //name// APPROVED REPORT Study performed: 03/28/2019 07:46:55 Patient Details Patient Status: In-Patient Room #: The patient is a 48 year-old female Event Personnel Ramon Lee Photostat Operator, Dulce White RN, Seema Hammer RN RN, Tracy Diaz Monitor, Gretel Torrez RTR Scrub, Nilesh Miller RTR Monitor Procedures Performed Art Access - R femoral artery* Left Heart Cath w/or w/o Coronaries 5341137 [facility] 10183 Initial Mod Sed Same Phys/QHP Gr5y 165754 36697 Mod Sed Same Phys/QHP Ea 012068 Hemostasis with Manual pressure Indication Non-STEMI , Dyspnea, Chest pain Risk Factors Obesity, Hypercholesterolemia, Hypertension, Diabetes Tobacco History () Procedure Narrative The Right Groin^ was infiltrated with 1% Lidocaine subcutaneous anesthesia. A PINNACLE 4FR Sheath #[id number] sheath was inserted into the RFA^. Coronary angiography was performed using coronary diagnostic catheters. The right coronary system was accessed and visualized with a JR4 catheter. The left coronary system was accessed and visualized with a JL4 catheter. The left ventricle was accessed and visualized with a Pigtail catheter. Left ventriculogram was performed in 30 degree projection. Hemostasis was obtained with manual pressure following sheath removal without any complications. The patient tolerated the procedure well and there were no complications associated with the procedure. There was no hematoma. Intraoperative Conscious Sedation Sedation start time: 8:13 Case end Time: [facility] [address] [place] [address] INVASIVE PROCEDURE REPORT Name: GILES CORTES Room #: 211-P ADM IN M.R.#: [id number] Admission: 03/23/19 Attend Phys: Chikis Mera Discharge: Date of : 70 Report #: [id number] 8:41 Fentanyl 50 mcg Versed 1 mg Fluoro Time: 2.48 minutes Dose: DAP 5642.30 cGycm2 650 mGy Contrast Type and Amount: Omnipaque 105 ml Coronary Angiography The patient's coronary anatomy is right dominant. Diagnostic Cath Left Main This is a large caliber vessel, with no flow-limiting lesions. LAD This is a moderate size caliber vessel, traversing the anterior wall and wrapping around the apex. There is a severe stenosis in the proximal segment, 70%. The mid segment is relatively patent. The distal segment has moderate diffuse disease. Diagonal 1 This is small to moderate size caliber vessel with a severe stenosis at the ostium, 80%. Circumflex After giving off a moderate size OM1 vessel, there is a severe occlusion of the proximal left circumflex artery, 80%. OM1 Has an early takeoff from the left circumflex artery, with mild disease in the midsegment. OM2 There is a severe occlusion in the proximal segment, 80%. Right Coronary This is a dominant vessel with a total occlusion in the proximal segment. The distal branches are filled via collateral circulation from the left coronary artery. Left Ventriculography The left ventricle is mildly dilated in size with decreased contractility. The left ventricular ejection fraction is estimated to be 40%. There is hypokinesis of the inferior wall. Hemodynamics The aortic pressure is 153/92 mmHg with a mean of 117 mmHg. The left ventricular pressure is 159/36 mmHg with a mean of mmHg. The left ventricular end diastolic pressure is 40 mmHg. Conclusion 1. Severe three-vessel coronary artery disease 2. Right dominant system. [facility] [address] [place] [address] INVASIVE PROCEDURE REPORT Name: GILES CORTES Room #: 211-P [facility] IN ..#: [id number] Admission: 03/23/19 Attend Phys: Chikis Mera Discharge: Date of : 70 Report #: [id number] 3. Moderate segmental LV dysfunction. 4. Recommend CV surgical consultation. <ELECTRONICALLY SIGNED> By: Ramon Lee MD 10/07/16 944 4 4 Ramon Lee MD /ROSE MARY
--- NOTE | 2019-03-28 14:21 | NUR ---
VSS NSR LUNGS CLEAR RA SAT IS 96%, UP IN ROOM AFTER HT CATH NO C/O CHEST PAIN. R GROIN SITE WITHOUT HEMATOMA OR BRUIT. WILL CONTINUE TO MONITER AND CARE FOR PTPER PLANOF CARE
[2019-03-29 03:37] VITALS: BP 122/64
--- NOTE | 2019-03-29 04:51 | NUR ---
ASSUMED PT CARE AT 1900. PT VSS AND NO C/O PAIN. CATH SITE C/D/I WITH NO HEMATOMA AND SOFT. PT WILL BE DISCHARGED AND RETURNING FOR [facility]. WILL CONTINUE TO MONITOR PT TOWARD POC.
[2019-03-29 06:11] LABS: HEMATOCRIT 32.7 % (37.0-47.0); HEMOGLOBIN 10.9 gm/dL (12.0-15.0); MCH 33.2 pg (26.0-34.0); MCHC 33.4 g/dL (28.0-37.0); MCV 99.4 fL (80.0-100.0); PLATELET COUNT 150 thou/uL (150-400); RBC 3.29 mil/uL (4.20-5.00); RDW 14.4 % (10.5-14.5); WBC 4.2 thou/uL (4.0-11.0)
[2019-03-29 06:29] LABS: CALCIUM 8.4 mg/dL (8.5-10.1); CREATININE 0.5 mg/dL (0.6-1.0); POTASSIUM 3.5 mmol/L (3.5-5.1)
[2019-03-29 08:57] LABS: ABSOLUTE NEUTROPHILS 2.3 thou/uL (1.4-8.2); PLATELET ESTIMATE NORMAL
[2019-03-29] MEDS ORDERED: CIPRO500 MG PO (10:42)
[2019-03-29] MEDS ORDERED: LIPITOR40 MG PO (10:42)
[2019-03-29] MEDS ORDERED: METOPROLOL SUCC25 M1 PO (10:43)
[2019-03-29] MEDS ORDERED: ASA81BEC PO (10:43)
[2019-03-29] MEDS ORDERED: PEPCID20 MG PO (10:44)
[2019-03-29 12:44] VITALS: BP 130/81
[2019-03-29 14:59] VITALS: BP 130/81
--- NOTE | 2019-03-29 16:24 | NUR ---
ASSESSMENT CHARTED - MEDS PER AUG - ACCUCHECKS COVERED PER HDSSI. NO CO'S OF PAIN OR NAUSEA. ROCÍO DIET AND FLUIDS. UP AD AVNI IN ROOM AND ON THE UNIT. PT SEEN BY ENDOCRINE DOCTOR THIS AM ORDERED. PT TO HOME THIS AFTERNOON. INSTRUCTION RE HOME MEDS/ CARE AND FOLLOW UP GIVEN TO PATIENT - STATED UNDERSTANDING OF INSTRUCTION. MIDLING AND MONITOR REMOVED PRIOR TO D/C. LEFT UNIT BEVERLY WHEELCHAIR - HOME VIA PVT VEHICLE ACCOMPANIED BY FRIEND. NO CO'S AT TIME OF D/C.
[2019-03-30 01:08] LABS: GLYCOHEMOGLOBIN (HGB A1C) 8.6 % (4.8-5.6)
--- NOTE | 2019-03-30 13:04 | HC ---
[facility] [place] [address] CONSULTATION Name: GILES CORTES Room #: 211-P [facility] IN ..#: [id number] Admission: 03/23/19 Attend Phys: Chikis Mera MD Discharge: 03/29/19 Date of : 70 Report #: [id number] THIS REPORT FOR: //name// CC: AUNG physician/PCP Chikis Mera DATE OF SERVICE: 03/29/2019 ENDOCRINE CONSULTATION NOTE CONSULTING PHYSICIAN: Dr. Green. REASON FOR CONSULTATION: Uncontrolled type 2 diabetes mellitus. HISTORY OF PRESENT ILLNESS: This is a 48-year-old female patient whose medical background is primarily noted for type 2 diabetes mellitus that was diagnosed 15-20 years ago. The patient notes that she has been placed on Lantus insulin 10 units daily a few weeks ago in addition to her ongoing therapy with metformin 1000 mg b.i.d. Prior to that, the patient was on glipizide, but this was discontinued during a recent admission for sepsis at [facility]. The patient admits to hardly ever monitoring her blood glucose at home and notes that she has just barely purchased a blood glucose meter. She does perform routine eye examinations and is not aware of issues of diabetic retinopathy, but does have early cataract changes. The patient does not report ongoing complications of neuropathy, diabetic nephropathy, and prior to this admission, has not known about coronary artery disease. The patient was admitted on 03/23/2019 and an outlook is consistent with sepsis in the setting of UTI and was admitted for further care and monitoring and was admitted to the ICU for hypotension where she was resuscitated. Following that, her troponin was elevated and she underwent a coronary angiogram, which revealed multivessel disease and it was determined that she would be best served by coronary artery bypass grafting. The patient is being discharged today with a plan to return next week for a CABG procedure. REVIEW OF SYSTEMS: CONSTITUTIONAL: Intermittent issues with fatigue and tiredness and recent issues with fever and chills surrounding her admission. No significant body weight changes as of lately. HEENT: Negative for sore throat, sinus congestion, ear pain, ear drainage. PULMONARY: Intermittent shortness of breath, especially on exertion. No major or frequent difficulties with cough or hemoptysis. CARDIAC: No chest pain or palpitations, syncope or presyncope. GASTROINTESTINAL: Occasional abdominal distention, nausea, but no vomiting or chronic changes in bowel movement frequency. [address] [address] CONSULTATION Name: GILES CORTES Room #: 211-P [facility] IN M.R.#: [id number] Admission: 03/23/19 Attend Phys: Chikis Mera MD Discharge: 03/29/19 Date of : 70 Report #: [id number] NEUROLOGY: Negative for loss of consciousness, headaches or seizure activity. DERMATOLOGY: Negative for skin rash, irritation, ulceration or other changes. PSYCHOLOGY: Negative for hallucinations, delusions, depression. Otherwise, review of systems is noncontributory other than those mentioned in HPI. PAST MEDICAL HISTORY: 1. Type 2 diabetes mellitus. 2. Hypertension. 3. Hyperlipidemia. 4. Obesity. 5. Recent diagnosis of coronary artery disease as noted above with NSTEMI. 6. Ischemic cardiomyopathy diagnosed during this admission. 7. Thrombocytopenia diagnosed during this admission. DISCHARGE MEDICATIONS: Lantus insulin 14 units q. p.m., metformin 1000 mg b.i.d., atorvastatin 40 mg daily, metoprolol XL 25 mg daily, aspirin 81 mg daily, famotidine 20 mg daily. ALLERGIES: No known drug allergies. FAMILY HISTORY: Noted for multiple family members with type 2 diabetes mellitus. SOCIAL HISTORY: She is , does not have children. 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 She smokes 1 to 1-1/2 packs per day. Denies use of alcohol. PHYSICAL EXAMINATION: GENERAL: Pleasant female patient who is not in apparent pain or distress. VITAL SIGNS: Blood pressure is 137/91 mmHg, heart rate of 70 beats per minute, respirations 18 per minute, temperature of 36.4 degrees. CONSTITUTIONAL: No pain distress. The patient seems comfortable. HEENT: Anicteric sclerae. Intact extraocular motions. NECK: Supple, without JVD, carotid bruits or lymphadenopathy. I do not appreciate thyromegaly. CHEST: Noted for moderate air entry bilaterally with scattered rales. HEART: Regular rate and rhythm without murmurs or gallops. ABDOMEN: Soft and lax without tenderness or organomegaly. She has active bowel sounds. EXTREMITIES: Lower extremity exam is negative for ankle edema. The patient has good pulses bilaterally. NEUROLOGIC: Awake, alert and oriented to time, place and person. The remainder of her examination is grossly nonfocal. [facility] [address] [facility] [place] [address] CONSULTATION Name: GILES CORTES Room #: [facility]-P [facility] IN M.R.#: [id number] Admission: 03/23/19 Attend Phys: Chikis Mera MD Discharge: 03/29/19 Date of : 70 Report #: [id number] PSYCHIATRIC: Pleasant, interactive appropriate. No hallucinations. SKIN: No rash, ulceration or other gross abnormalities. LABORATORY STUDIES: The patient notes that her most recent hemoglobin A1c done a few weeks ago was 11.7. Blood glucose here has ranged from 160-200 mg/dL for the most part. Hemoglobin 10.9, white blood count 4.2, platelets 150. Sodium 142, potassium 3.5, chloride 105, carbon dioxide 29, anion gap of 8, BUN 8, creatinine 0.5, GFR 132, glucose 196, calcium 8.4. Vitamin D 30.9, albumin 2.0. ASSESSMENT AND PLAN: 1. Type 2 diabetes mellitus. As noted above, the patient has a baseline that is remarkable for poorly controlled diabetes mellitus and the patient admittedly notes that she took very little interest in managing or monitoring her disease over the past years. Her most recent hemoglobin A1c done in the outpatient setting is indicative of severe persistent hyperglycemia. The patient and I had a lengthy discussion about the necessity of better glycemic control towards preventing future microvascular or macrovascular complications, which she seems to be rather conscious of. Interestingly, the patient was managed here with Humalog supplemental scale only and has maintained blood glucose values that were mostly within or close to the desired target range of 100-180 mg/dL. This goes to indicate the significant impact of lifestyle on her glycemic outlook, which she understood well. The patient is being discharged today and is being planned for a coronary artery bypass graft in a week from now. Given this short timeframe prior to surgery, I will have the patient go home on a combination of metformin 1000 mg daily, Lantus insulin 14 units daily with a plan to monitor her blood glucose values closely at home and contact me should she need help adjusting her regimen to achieve a short-term target of ____ mg/dL. Once her surgery is concluded and as she enters into her recovery period afterwards, I would be rather interested in the inclusion of antidiabetic agents that have an edge in cardiovascular disease prevention such as Jardiance or Victoza. I have discussed this with the patient and she understands that this would be a consideration to be made following her discharge postoperatively. 2. Hyperlipidemia. I fully agree with a change to high intensity statin agent on discharge given the patient's documentation of coronary artery disease and type 2 diabetes mellitus. I stressed the importance of adequate and maintained lipid control going forward. 3. Hypertension. [address] [address] CONSULTATION Name: GILES CORTES Room #: 211-P [facility] IN M.R.#: [id number] Admission: 03/23/19 Attend Phys: Chikis Mera MD Discharge: 03/29/19 Date of : 70 Report #: [id number] The patient is being released on metoprolol. She is advised to maintain that. 4. Coronary artery disease. As noted above, the patient had sustained a non-ST elevation myocardial infarction and is being planned for an open heart coronary artery bypass grafting next week. I counseled the patient about the necessity of adjusting risk factors for coronary artery disease including type 2 diabetes mellitus, hypertension, hyperlipidemia and smoking, which she understood well. I certainly appreciate this consultation by Dr. Green. <ELECTRONICALLY SIGNED> By: Kirstie Brock MD 03/30/19 1304 [id number] MD jennifer Waller
--- NOTE | 2019-04-04 15:57 | HC ---
[facility] [place] [address] CONSULTATION Name: GILES CORTES Room #: [facility] IN M.R.#: [id number] Admission: 03/23/19 Attend Phys: Chikis Mera MD Discharge: 03/29/19 Date of : 70 Report #: [id number] THIS REPORT FOR: //name// CC: AUNG physician/PCP Chikis Mera CARDIOLOGY CONSULTATION REASON FOR CONSULTATION: Elevated troponin. HISTORY OF PRESENT ILLNESS: The patient is a 48-year-old female with history of diabetes mellitus type 2, hypertension, tobacco abuse, recently discharged from [facility] after having urosepsis. Over the past several days, she has had increased fatigue, fevers, chills and she presented here to the Emergency Room and was noted to have a fever. She was admitted to the ICU with presumed recurrent urosepsis. She denies any chest pain or chest tightness. She denies PND or orthopnea. She does have some mild exertional dyspnea, which is chronic in nature. She denies presyncope or syncope. REVIEW OF SYSTEMS: A 12-point review of systems was performed. GENERAL: She has been having fevers or chills. HEENT: No blurred vision. CARDIOVASCULAR: As above. PULMONARY: No productive cough. GASTROINTESTINAL: She has been having some nausea, no abdominal pain. GENITOURINARY: No dysuria. MUSCULOSKELETAL: No myalgias or arthralgias. ENDOCRINE: No heat or cold intolerance. NEUROLOGIC: No focal weakness. PAST MEDICAL HISTORY: As above. SOCIAL HISTORY: She does smoke. FAMILY HISTORY: Noncontributory. ALLERGIES: None. MEDICATIONS: Include Effexor, metformin, insulin, pravastatin, magnesium, vitamin B12. PHYSICAL EXAMINATION: VITAL SIGNS: Temperature is 36.5, pulse 72, respirations 18, blood pressure is currently 93/64, sats 100%. GENERAL: In no acute distress, alert and oriented x 3. HEENT: Her sclerae are anicteric. Oropharynx is clear. NECK: Supple, no thyromegaly, no carotid bruits. [facility] [address] [place] [address] CONSULTATION Name: GILES CORTES Room #: 211-P [facility] IN M.R.#: [id number] Admission: 03/23/19 Attend Phys: Chikis Mera MD Discharge: 03/29/19 Date of : 70 Report #: [id number] HEART: Regular rate and rhythm with no murmurs, rubs or gallops. LUNGS: Clear to auscultation bilaterally. ABDOMEN: Soft, nontender, nondistended, no hepatosplenomegaly. EXTREMITIES: There is no clubbing, cyanosis, edema. NEUROLOGICAL: Cranial nerves 2-12 are intact. LABORATORY DATA: White count 7, hemoglobin 11, platelets 96. Chemistries: Sodium 140, potassium 4, BUN 19, creatinine 0.8. Troponin initially was 0.5, repeat was 1.1. Chest x-ray shows no acute process. Her 12-lead EKG shows normal sinus rhythm with normal intervals, no ischemic changes. Telemetry shows normal sinus rhythm. Her echocardiogram shows an EF of 45% with some possible inferior wall hypokinesis. ASSESSMENT: 1. Possible non-ST segment elevation myocardial infarction. 2. Sepsis. 3. Urosepsis. 4. Thrombocytopenia. 5. Left ventricular systolic heart failure with reduced EF of 45%. ASSESSMENT AND PLAN: In summary, the patient is a 48-year-old with diabetes, hypertension, tobacco abuse, who presents with sepsis and has an elevated troponin. The etiology of this is unclear. This may be related to sepsis, but could also be related to significant CAD. She does have mildly decreased LV function and possibly an inferior wall motion abnormality. I have recommended that when she is improved from urosepsis, we will recommend stress testing. If this is abnormal, we will proceed with a diagnostic heart catheterization. She understands this and is willing to proceed. <ELECTRONICALLY SIGNED> By: Ezequiel Ravi MD 04/04/19 1557 1302 [id number] Ezequiel Ravi MD /nt
--- NOTE | 2019-04-06 13:11 | HC ---
[facility] [place] [address] CONSULTATION Name: GILES CORTES Room #: 211-P [facility] IN M.R.#: [id number] Admission: 03/23/19 Attend Phys: Chikis Mera MD Discharge: 03/29/19 Date of : 70 Report #: [id number] THIS REPORT FOR: //name// CC: AUNG physician/PCP Chikis Mera DATE OF SERVICE: 03/28/2019 HISTORY OF PRESENT ILLNESS: We were asked by Dr. Lee to see the patient. The patient is a 48-year-old with coronary artery disease. The patient had cardiac catheterization today that shows severe 3-vessel coronary disease, including a total occluded right coronary artery filled by left to right collaterals that appears to be the culprit vessel from a recent infarct. The patient states that her history began with intermittent chest pain radiating to the left arm over the last month or so, approximately 2 weeks ago. The patient was admitted to [facility] with urinary sepsis. This was treated and the patient discharged, but she was admitted to this institution on 03/23/2019 with recrudescence of sepsis at this time with fever, chills, lethargy, temperature 101 prior to admission. The patient also noted urinary retention and frequency with foul-smelling urine. The patient also described a 15-pound unintentional weight loss and last hemoglobin A1c was 11.7. PAST MEDICAL HISTORY: Significant for diabetes, hypertension, and hypercholesterolemia in addition to the recent issues. MEDICATIONS: At home includes Effexor, Glucophage, insulin, pravastatin, magnesium and vitamin B12. ALLERGIES: None known. SOCIAL HISTORY: Significant for tobacco use. The patient denies alcohol use. REVIEW OF SYSTEMS: CONSTITUTIONAL: As mentioned, the patient had fever at home with lethargy and malaise, also describes a 15-pound unintentional weight loss. EYES: Wears glasses. No vision change. HEENT: No hearing changes. No sinus issues or headache. RESPIRATORY: Denies cough, shortness of breath. CARDIAC: No chest pain or palpitations, but describes angina and left shoulder pain prior to the [place] admission. GASTROINTESTINAL: Denies abdominal pain, nausea, vomiting. GENITOURINARY: As mentioned, burning, frequency, urinary retention on admission. MUSCULOSKELETAL: No bone or joint pain. SKIN: No rash or infection. NEUROLOGIC: No motor or sensory dysfunction. [address] [address] CONSULTATION Name: GILES CORTES Room #: 211-P [facility] IN M.R.#: [id number] Admission: 03/23/19 Attend Phys: Chikis Mera MD Discharge: 03/29/19 Date of : 70 Report #: [id number] HEMATOLOGIC: No bruising. ENDOCRINE: No tremor or goiter. PHYSICAL EXAMINATION: Today, the patient is afebrile. VITAL SIGNS: Temperature 36.8, heart rate 82, respiratory rate 18, blood pressure 139/80, O2 sat 94 on room air. HEENT: The patient is lying in bed after cardiac catheterization. The patient has a chris complexion. Normocephalic. Pupils are round, equal. No icterus, no arcus. NECK: No mass, no bruit. CHEST: Clear to auscultation. HEART: Rhythm regular, no murmur. ABDOMEN: Soft. No mass or tenderness. EXTREMITIES: No clubbing, cyanosis or edema. No obvious saphenous vein problems. VASCULAR: 2+ dorsalis pedis pulses bilaterally, 2+ radial pulses. NEUROLOGIC: No obvious motor or sensory dysfunction. MUSCULOSKELETAL: No asymmetry or deformity. PSYCHIATRIC: Shows insight into problem and answers questions appropriately. ASSESSMENT AND PLAN: The patient has important 3-vessel coronary disease in the setting of diabetes mellitus and a recent infarct. The patient is also just recovering from her septic episode. I have reviewed the risks and details of bypass surgery and discussed options and alternatives. The patient understands all of this and wishes to proceed. I have discussed timing of surgery with Dr. Lee, and we plan for the patient to be discharged and to return at a later date. Thank you for the consult. <ELECTRONICALLY SIGNED> By: Indra Lindsey MD 04/06/19 1311 [id number] Indra Lindsey MD /nt
[2019-04-13] MEDS ORDERED: ACID REDUCER20 MG PO (09:25)
[2019-04-13] MEDS ORDERED: TOPROL XL25 MG PO (09:25)
[2019-04-13] MEDS ORDERED: VITAMIN D35000 UNI1 PO (09:26)
[2019-04-13] MEDS ORDERED: MAGNESIUM250 M1 PO (09:26)
[2019-04-13] MEDS ORDERED: SUPER B COMPLE1 EAC2 PO (09:27)
[2019-04-25] MEDS ORDERED: ASPIR 8181 M1 PO (15:13)
[2019-04-25] MEDS ORDERED: LIPITOR40 MG PO (15:13)
[2019-04-25] MEDS ORDERED: FUROSEMIDE 40 M40 MG PO (15:15)
[2019-04-25] MEDS ORDERED: POTASSIUM20 PO (15:17)
[2019-04-25] MEDS ORDERED: GLUCOPHAGE1000 MG PO (15:17)
[2019-04-25] MEDS ORDERED: FLOMAX0.4 MG PO (15:18)
[2019-04-25] MEDS ORDERED: MAGNESIUM250 M1 PO (15:19)
== END 2019-03-29 15:35 | disposition home or self-care (01) | DRG 871 ==
LOC: EDBD 13:42 → ER 13:42 → 2N 16:52 → EROBS 16:52 → ICU 16:52 → 2N 03-25 12:46 → ENTRNSPT 03-29 15:27 → EDTRNSPTSTS 03-29 15:28 → 2N 03-29 15:35
PROVIDERS: Internal Medicine Cardiovascular Disease; Internal Medicine Hematology & Oncology; Internal Medicine Infectious Disease; Nurse Practitioner Adult Health; Nurse Practitioner Family; Surgery Vascular Surgery; ADMIT Internal Medicine
DX: A41.9 Sepsis, unspecified organism (principal); I21.4 Non-ST elevation (NSTEMI) myocardial infarction; N39.0 Urinary tract infection, site not specified; I50.20 Unspecified systolic (congestive) heart failure; E44.0 Moderate protein-calorie malnutrition; E11.9 Type 2 diabetes mellitus without complications; R65.20 Severe sepsis without septic shock; D69.6 Thrombocytopenia, unspecified; D53.9 Nutritional anemia, unspecified; E78.5 Hyperlipidemia, unspecified; E66.9 Obesity, unspecified; R59.0 Localized enlarged lymph nodes; I25.10 Atherosclerotic heart disease of native coronary artery without angina pectoris; F17.210 Nicotine dependence, cigarettes, uncomplicated; R74.0 Nonspecific elevation of levels of transaminase and lactic acid dehydrogenase [LDH]; I11.0 Hypertensive heart disease with heart failure; R00.1 Bradycardia, unspecified; F39 Unspecified mood [affective] disorder; B96.20 Unspecified Escherichia coli [E. coli] as the cause of diseases classified elsewhere; I25.5 Ischemic cardiomyopathy; E11.65 Type 2 diabetes mellitus with hyperglycemia; F41.9 Anxiety disorder, unspecified; Z90.722 Acquired absence of ovaries, bilateral; Z90.49 Acquired absence of other specified parts of digestive tract; Z90.710 Acquired absence of both cervix and uterus; Z71.6 Tobacco abuse counseling; Z68.34 Body mass index [BMI] 34.0-34.9, adult; Z83.3 Family history of diabetes mellitus; Z82.49 Family history of ischemic heart disease and other diseases of the circulatory system; Z79.82 Long term (current) use of aspirin; Z79.899 Other long term (current) drug therapy
CPT/HCPCS: 10078; 10081; 27000

== ENCOUNTER 2019-04-15 11:15 | Inpatient (IN) | payer BC, OTHER ==
[2019-04-15] VITALS (22 sets, daily range): BP systolic 91–127; BP diastolic 53–76
[~2019-04-15] VITALS: Ht 165.1 cm; Wt 88.0 kg
--- NOTE | ~2019-04-15 | HC ---
[facility] [place] [address] CONSULTATION Name: GILES CORTES Room #: 245-P [facility] IN M.R.#: [id number] Admission: 04/15/19 Attend Phys: Ana Green MD Discharge: Date of : 70 Report #: [id number] THIS REPORT FOR: //name// CC: PATRICE CHACON FAM unknown Ana Green CARDIOLOGY CONSULT HISTORY OF PRESENT ILLNESS: The patient is a 48-year-old female. She was scheduled for elective bypass surgery tomorrow. Presented yesterday with the fevers, shaking chills, and now is documented of urosepsis. She was discharged back on 03/29/2019 and was ____ ejection fraction for bypass of 40% with severe 3-vessel disease and the right was occluded and collateralized. She has not had any unstable anginal type symptoms and has not felt well, underlying diabetes, ischemic cardiomyopathy, thrombocytopenia. Her hemoglobin is 10.9 and the creatinine is 0.5. Troponin was negative. Her troponin was not drawn. She denies chest pain or anginal complaints. The cultures are pending. She gets mildly intermittently short of breath, but appears quite comfortable. Her current home medications have been aspirin, Lipitor 40, metoprolol 25, Pepcid 20, and had been on some Cipro, metformin, insulin, and Mag-Ox. ALLERGIES: No known drug allergies. SOCIAL HISTORY: Alcohol and tobacco user, 1-1/2 packs a day and prior recreational drug use. FAMILY HISTORY: Positive for premature coronary artery disease. PAST MEDICAL HISTORY: Positive for the coronary artery disease, ischemic cardiomyopathy, hypertension, diabetes, hypercholesterolemia, tonsillectomy, cholecystectomy, and hysterectomy. She is followed by Dr. Ravi and Dr. Lee. LABORATORY WORK: Today, sodium 143, potassium is 3.8, creatinine 0.6, and glucose 170. Troponin 0.15. H and H 11.5 and 35.7, white count is 7.1, and MCV 102 ____. Chest x-ray, no acute process. PHYSICAL EXAMINATION: VITAL SIGNS: Blood pressure 130/84 and pulse is 80s-90s and regular. HEENT: Eyes reveal xanthelasmas. Pharynx is clear. NECK: Shows preserved upstrokes without JVD or bruits. LUNGS: Clear. CARDIOVASCULAR: Regular rate and rhythm. S1 and S2. ABDOMEN: Soft. No HSM or abdominal bruits. No flank tenderness. EXTREMITIES: Reveal no edema. Distal pulses intact. [address] [address] CONSULTATION Name: GILES CORTES Room #: 245-P [facility] IN .R.#: [id number] Admission: 04/15/19 Attend Phys: Ana Green MD Discharge: Date of : 70 Report #: [id number] NEUROLOGIC: Nonfocal. SKIN: Warm and dry without xanthoma or ulcer. MUSCULOSKELETAL: No gross joint deformity. ASSESSMENT: 1. Urosepsis. 2. Severe 3-vessel coronary artery disease, scheduled for bypass surgery (will hold for now). 3. Hypertension. 4. Hypercholesterolemia. 5. Diabetes. RECOMMENDATIONS AND PLAN: We will continue to follow. She has received antibiotics. She is hemodynamically stable. She is not having any unstable angina. There is an equivocal troponin. Dr. Jimenez is aware and seeing the patient. He will have to clear this infection prior to surgery. She will be seen in the morning by Dr. Lee. We will follow with you. Thank you for asking me to assist in the care of this patient. By: [phone] /nt
[~2019-04-15 11:15] MED LIST: ACID REDUCER20 MG PO; ASA81BEC PO; CIPRO500 MG PO; EFFEXOR XR75 MG PO; GLUCOPHAGE1000 MG PO; LANTUSSOLASTAR SUBQ; LIPITOR40 MG PO; MAGNESIUM250 M1 PO; MAGOX 400400 MG PO; METOPROLOL SUCC25 M1 PO; PEPCID20 MG PO; PRAVACHOL20 MG PO; SUPER B COMPLE1 EAC2 PO; TOPROL XL25 MG PO; VITAMIN B-12500 MCG PO; VITAMIN D35000 UNI1 PO
[2019-04-15 11:52] LABS: ABSOLUTE NEUTROPHILS 8.4 thou/uL (1.4-8.2); BASOPHILS 0.3 % (0.0-2.0); EOSINOPHILS 0.3 % (0.0-3.0); HEMATOCRIT 39.7 % (37.0-47.0); LYMPHOCYTES 4.2 % (24.0-44.0); MCH 33.4 pg (26.0-34.0); MCHC 32.7 g/dL (28.0-37.0); MCV 102.1 fL (80.0-100.0); MONOCYTES 2.2 % (1.0-8.0); PLATELET COUNT 161 thou/uL (150-400); RBC 3.89 mil/uL (4.20-5.00); RDW 15.6 % (10.5-14.5)
[2019-04-15 12:01] LABS: ANION GAP 8 mmol/L (7-16); BUN 7 mg/dL (7-18); CALCIUM 9.3 mg/dL (8.5-10.1); CHLORIDE 102 mmol/L (98-107); CO2 29 mmol/L (21-32); CREATININE 0.7 mg/dL (0.6-1.0); GLUCOSE 223 mg/dL (74-106); POTASSIUM 4.7 mmol/L (3.5-5.1)
[2019-04-15 12:03] LABS: SODIUM 139 mmol/L (136-145)
[2019-04-15 12:11] LABS: ALBUMIN 3.1 g/dL (3.4-5.0); SGOT 35 U/L (15-37); SGPT 19 U/L (30-65); TOTAL BILIRUBIN 0.9 mg/dL (<0.1-1.0); TOTAL PROTEIN 7.2 g/dL (6.4-8.2); TROPONIN-I <0.06 ng/mL (<0.06)
[2019-04-15 12:34] LABS: URINE BILIRUBIN NEGATIVE (Negative); URINE BLOOD 2+ (Negative); URINE CLARITY CLEAR; URINE COLOR YELLOW; URINE GLUCOSE-RANDOM* NEGATIVE (Negative); URINE KETONES NEGATIVE (Negative); URINE PROTEIN (DIPSTICK) TRACE (Negative); URINE SPECIFIC GRAVITY 1.015 (1.005-1.035)
[2019-04-15 12:37] LABS: URINE LEUKOCYTES-REFLEX 2+ (Negative); URINE NITRITE-REFLEX POSITIVE (Negative)
[2019-04-15 12:52] LABS: BACTERIA-REFLEX >30 Many /HPF (None Seen); CASTS None Seen /LPF (None Seen); CRYSTALS None Seen /LPF (None Seen); SQUAMOUS 4-10 Moderate /LPF (0-3); URINE WBC-REFLEX >25 Many /HPF (0-5); WBC CLUMPS Moderate (None Seen)
--- NOTE | 2019-04-15 19:11 | NUR ---
PT TX FROM 3W AT 1840. SETTLED AND PUT ON MONITOR. DR CROWLEY CALLED AND INFORMED OF SEPSIS AND TX TO ICU, HE WILL SEE PT TOMORROW. GERRY (COUSIN) GIVEN CODE, WILL CALL SEAN FOR UPDATE. NIGHT NURSE TO COMPLETE ADMISSION.
--- NOTE | 2019-04-15 19:29 | NUR ---
PT admitted from ER for UTI and sepsis, pt is A&OX3, but pt's BP is low , fever, RN had called DR to report pt bp 96/51mmhg, temp 101.4 F (0), DR came to see pt, new order received, PT transfer to ICU, and pt starts IV abx, giving medication for fever, when pt's vs are stable , pt is going to ICU at 1840pm, pt's family stay at pt's bedside.RN gave report at ICU bedside.
[2019-04-15] MEDS ORDERED: GLUCOPHAGE1000 MG PO (19:30)
--- NOTE | 2019-04-15 22:10 | NUR ---
Pt reported feeling pressure in lower ABD after urinate. Bladder scan ontained and it was more than 398 cc per scanner. Notified HEALTH CARE MANAGER general practitioner regarding of bladder retention. New order obtain for chamorro placement.
[2019-04-16] VITALS (51 sets, daily range): BP systolic 107–142; BP diastolic 65–92
[2019-04-16 05:04] LABS: HEMATOCRIT 35.7 % (37.0-47.0); HEMOGLOBIN 11.5 gm/dL (12.0-15.0); MCHC 32.2 g/dL (28.0-37.0); MCV 102.3 fL (80.0-100.0); RBC 3.48 mil/uL (4.20-5.00); RDW 15.6 % (10.5-14.5); WBC 7.1 thou/uL (4.0-11.0)
[2019-04-16 05:23] LABS: CALCIUM 8.5 mg/dL (8.5-10.1); CREATININE 0.6 mg/dL (0.6-1.0); MAGNESIUM 1.8 mg/dL (1.8-2.4); PHOSPHORUS 3.7 mg/dL (2.5-4.9); POTASSIUM 3.8 mmol/L (3.5-5.1); TROPONIN-I 0.15 ng/mL (<0.06)
--- NOTE | 2019-04-16 06:31 | NUR ---
Pt remains stable this am. No event last night,sleeping well. T max 99.6 this am, BP remains stable. Continue to monitor any changes.
[2019-04-16 14:31] LABS: BE(vivo) -0.2 mmol/L (-2 to +3); HCO3 23.9 mmol/L (22.0-26.0); PCO2 37.2 mmHg (35.0-45.0); PO2 61.9 mmHg (80.0-100.0); pH 7.426 (7.360-7.450); sO2 92.4 % (92.0-98.0)
--- NOTE | 2019-04-16 18:00 | NUR ---
Continued management for UTI. ID following. No changes to current regimen. VSS, see flowsheet; afebrile, BP stable. Denies pain. Sinus tachycardia on telemetry. CABG postponed. Noted feelings of slight SOA at rest, denies CP, shallow breath. CXR, completed. One dose of IVP lasix administered. Patient noted relief. Continue to wean O2 as tolerated. Tolerating foods and fluids. Watchful of glucose. Rowe catheter patent to gravity; large urine output (4L). Activity encouraged as tolerated. Continued progression towards current plan of care goals. No acute events to report. Anticipated transfer tomorrow.
--- NOTE | 2019-04-16 21:18 | NUR ---
PT. STATED AT 1930 INCREASED SOB LIKE THIS MORNING. PT. DID NOT DROP BELOW 90% O2, DENIED CHEST PAIN DOCTOR CALLED, AND ORDERES RECEIVED. AFTER FURISEMIDE WAS GIVEN, PT. STATED THAT THE SOB HAD GONE AWAY. WILL CONTINUE TO MONITOR.
[2019-04-17] VITALS (19 sets, daily range): BP systolic 100–133; BP diastolic 58–88
--- NOTE | 2019-04-17 05:22 | NUR ---
PT. RESTED WELL THROUGH NIGHT. NO FURTHER EVENTS. ASSESSMENTS AND VITAL SIGNS CHARTED. PT. IS PROGRESSING TOWARDS GOALS. PT. AND FAMIOLY STILL CONCERNED ABOUT WHEN PT. WILL RECIEVE OPEN HEART SURGERY IT WAS SCHEDULED FOR TODAY, BUT IS NO LONGER ON THE SCHEDULE. WILL CONTINUE TO MONITOR.
[2019-04-17 05:25] LABS: HEMATOCRIT 39.4 % (37.0-47.0); HEMOGLOBIN 12.9 gm/dL (12.0-15.0); MCH 33.3 pg (26.0-34.0); MCHC 32.6 g/dL (28.0-37.0); MCV 102.1 fL (80.0-100.0); RBC 3.86 mil/uL (4.20-5.00); WBC 8.3 thou/uL (4.0-11.0)
[2019-04-17 06:02] LABS: CREATININE 0.8 mg/dL (0.6-1.0); PHOSPHORUS 4.3 mg/dL (2.5-4.9); POTASSIUM 4.5 mmol/L (3.5-5.1)
--- NOTE | 2019-04-17 09:05 | EKG ---
[place] [address] [address] [facility] [place] [address] ELECTROCARDIOGRAM REPORT Name: GILES CORTES Room #: 245-P ADM IN M.R.#: [id number] Admission: 04/15/19 Attend Phys: Ana Green MD Discharge: Date of : 70 Report #: [id number] THIS REPORT FOR: //name// [facility] ED Test Date: 2019-04-15 Test Time: 11:26:43 Pat Name: GILES CORTES Department: Room: [facility] Gender: F Correspondence Review Clerk: NIRAJ : 1970 Requested By: Amy Osborne Order Number: [id number] MD: Garrett Jenkins Measurements Intervals [place] Rate: 124 P: 26 NC: 141 QRS: 21 QRSD: 104 T: 132 QT: 330 QTc: 474 Interpretive Statements Sinus tachycardia Low voltage, extremity leads Borderline repolarization abnormality Compared to ECG 03/24/2019 21:17:01 No significant changes Electronically Signed On 04-17-2019 9:05:26 CDT by Garrett Jenkins [email or web address] <ELECTRONICALLY SIGNED> By: Garrett Jenkins MD, [facility] 04/17/19904 112 Garrett Jenkins MD, FACC /EPI
--- NOTE | 2019-04-17 09:18 | EKG ---
[address] [place] [address] ELECTROCARDIOGRAM REPORT Name: GILES CORTES Room #: 245- ADM IN M.R.#: [id number] Admission: 04/15/19 Attend Phys: Ana Green MD Discharge: Date of : 70 Report #: [id number] THIS REPORT FOR: //name// [facility] [place] Test Date: 2019-04-16 Test Time: 09:29:49 Pat Name: GILES CORTES Department: Room: [facility] Gender: F Medical Staff Services Coordinator: Cherelle LEA : 1970 Requested By: Tyler Workman Order Number: [id number] MD: Garrett Jenkins Measurements Intervals [place] Rate: 98 P: 36 ID: 153 QRS: 17 QRSD: 110 T: 172 QT: 377 QTc: 482 Interpretive Statements Sinus rhythm Nonspecific ST and T wave abnormality Compared to ECG 03/24/2019 21:17:01 Heart rate has slowed Electronically Signed On 04-17-2019 9:17:53 CDT by Garrett Jenkins [email or web address] <ELECTRONICALLY SIGNED> By: Garrett Jenkins MD, [facility] 04/17/19916 8 8 Garrett Jenkins MD, [facility] /EPI
--- NOTE | 2019-04-17 10:42 | NUR ---
CM ASSESSMENT: CASE OPENED FOR DC PLANNING. PT KNOWN FROM RECENT ADMIT FOR ECOLI UROSEPSIS AND WORKUP FOUND CAD WITH RECEMMENDATION FOR CABG, WHICH WAS PLANNED FOR 04/17/19. PLAN NOW TO RESCHEDULE CABG WHEN INFECTION CLEARED. PT LIVES WITH SPOUSE AND WAS INDEPENDENT WITH ADLS OPERATER. THERAPY EVALS PENDING. DC HOME VS REHAB.
--- NOTE | 2019-04-17 12:02 | NUR ---
SPOKE WITH PT AND FAMILY. PT PLANNING ON RETURNING HOME AT DC, BUT HAS OBTAINED AN IN NETWORK SKILLED REHAB ALIST FROM HER INSURANCE SHE FEELS SHE MAY POSSIBLY NEED REHAB AFTER CABG. PT INDICATES SHE WILL BE STAYING AT HER FRIEND'S HOME AT [place].
--- NOTE | 2019-04-17 17:09 | EKG ---
[address] [place] [address] ELECTROCARDIOGRAM REPORT Name: GILES CORTES Room #: 245- ADM IN M.R.#: [id number] Admission: 04/15/19 Attend Phys: Ana Green MD Discharge: Date of : 70 Report #: [id number] THIS REPORT FOR: //name// [facility] Test Date: 2019-04-17 Test Time: 07:46:48 Pat Name: GILES CORTES Department: Room: [facility] Gender: F Screen Printing Equipment Setter: Cherelle LEA : 1970 Requested By: Tyler Workman Order Number: [id number] MD: Garrett Jenkins Measurements Intervals [place] Rate: 93 P: 22 HI: 148 QRS: 6 QRSD: 110 T: 58 QT: 407 QTc: 507 Interpretive Statements Sinus rhythm Nonspecific ST segment abnormality Borderline prolonged QT interval Compared to ECG 03/24/2019 21:17:01 No significant change was found Electronically Signed On 04-17-2019 17:09:31 CDT by Garrett Jenkins [email or web address] <ELECTRONICALLY SIGNED> By: Garrett Jenkins MD, [facility] 04/17/19 1709 5 Garrett Jenkins MD, [facility] /EPI
--- NOTE | 2019-04-17 18:19 | NUR ---
ASSUMED CARE OF PT AT 0645. PLAN TO WAIT FOR CABG TIL OFF ABX. WILL STAY INPT WHILE ON ABX. CCU TX ORDERS. TX TO 213 AT SHIFT CHANGE. THEARPY SIGNED OFF UNTIL AFTER SURGERY.
[2019-04-18 04:55] VITALS: BP 100/54
[2019-04-18 05:05] LABS: CALCIUM 8.7 mg/dL (8.5-10.1); CREATININE 0.6 mg/dL (0.6-1.0); MAGNESIUM 1.8 mg/dL (1.8-2.4); PHOSPHORUS 3.8 mg/dL (2.5-4.9)
[2019-04-18 05:44] LABS: HEMATOCRIT 35.1 % (37.0-47.0); HEMOGLOBIN 11.4 gm/dL (12.0-15.0); MCH 32.9 pg (26.0-34.0); MCHC 32.6 g/dL (28.0-37.0); MCV 100.8 fL (80.0-100.0); RBC 3.48 mil/uL (4.20-5.00); RDW 14.8 % (10.5-14.5); WBC 6.8 thou/uL (4.0-11.0)
--- NOTE | 2019-04-18 06:10 | NUR ---
ASUUMED PT CARE AT 1900. VSS. PT A&0X4, ASSESSMENTS AND MEDS GIVEN DOCUMENTED. PT SLEPT WELL FOR MOST OF THE NIGHT, PT STILL ON IV ABX. POTASSIUM CAME BACK 3.0 THIS AM, JOSE FERMIN NOTIFIED, ONETIME ORDER FOR K REPLACEMENT GIVEN, K REPLACED, PT IS STABLE, NO COMPLAINTS OF PAIN OR DISTRESS. WILL CONTINUE TO MONITOR PER POC.
[2019-04-18 07:36] VITALS: BP 134/79
--- NOTE | 2019-04-18 18:48 | NUR ---
PT ASSESSMENT CHARTED, NO ISSUES TODAY. PT WALKED AROUND UNIT SEVERAL TIMES, STEADY ON FEET.
[2019-04-18 19:58] VITALS: BP 118/71
[2019-04-19 04:55] VITALS: BP 132/87
[2019-04-19 05:41] LABS: CALCIUM 8.8 mg/dL (8.5-10.1); CREATININE 0.7 mg/dL (0.6-1.0); POTASSIUM 3.6 mmol/L (3.5-5.1)
--- NOTE | 2019-04-19 07:10 | NUR ---
ASSUMED PT CARE AT 1900. VSS. PT A&OX4. PT RESTED WELL ALL NIGHT. NO COMPLAINTS OF PAIN OR DISTRESS, PT IS STABLE. PT STATED THAT SHE IS OCNFUSED ABOUT THE PLAN OF CARE DIFFERENT PROVIDERS ARE PRESENTING DIFFERENT COURSE OF ACTION TO HER. PT WOULD LIKE TO BE ENLIGHTENED ON ONE POC TO WHICH SHE CAN FOLLOW THROUGH.
[2019-04-19 07:46] VITALS: BP 131/86
[2019-04-19 09:18] LABS: TSH 1.017 uIU/mL (0.358-3.740)
[2019-04-19 16:25] VITALS: BP 108/69
--- NOTE | 2019-04-19 18:53 | NUR ---
Patient AOX4. She had a couple of tests today and is tired but is feeling better overall. All VSS. Up ad wilberto. Ready to d/c tomorrow and is anxious to know when her CABBG surgery will be. Anticipate ready to discharge tomorrow.
[2019-04-19 21:22] VITALS: BP 127/78
--- NOTE | 2019-04-20 03:34 | NUR ---
ASSUMED PT CARE AROUND 1900. A&OX4. DENIES ANY PAIN. PT WALKED AROUND THE UNIT AT BEGINNING OF SHIFT; TOLERATED WELL AND DENIED ANY SIGNIFICANT SOA. ADEQUATE URINE OUTPUT. PT SLEPT MOST OF THE NIGHT. RESP EVEN AND UNLABORED. VSS. AFEBRILE. PROGRESSING TOWARD POC GOALS. WILL CONTINUE TO MONITOR FURTHER.
[2019-04-20 04:30] VITALS: BP 129/80
[2019-04-20 06:18] LABS: ABSOLUTE NEUTROPHILS 3.4 thou/uL (1.4-8.2); BASOPHILS 0.6 % (0.0-2.0); EOSINOPHILS 2.7 % (0.0-3.0); HEMOGLOBIN 11.1 gm/dL (12.0-15.0); LYMPHOCYTES 29.8 % (24.0-44.0); MCH 32.8 pg (26.0-34.0); MCHC 32.6 g/dL (28.0-37.0); MCV 100.8 fL (80.0-100.0); MONOCYTES 8.2 % (1.0-8.0); PLATELET COUNT 134 thou/uL (150-400); POLYS 58.7 % (36.0-66.0); RBC 3.37 mil/uL (4.20-5.00); WBC 5.7 thou/uL (4.0-11.0)
[2019-04-20 06:39] LABS: CALCIUM 8.9 mg/dL (8.5-10.1); CREATININE 0.6 mg/dL (0.6-1.0); MAGNESIUM 1.9 mg/dL (1.8-2.4); POTASSIUM 3.6 mmol/L (3.5-5.1)
[2019-04-20 08:25] VITALS: BP 119/68
[2019-04-20] MEDS ORDERED: FLOMAX0.4 MG PO (10:08)
[2019-04-20] MEDS ORDERED: K-DUR 20 MEQ T20 MEQ PO (10:08)
[2019-04-20] MEDS ORDERED: LASIX 40 MG TAB40 MG PO (10:08)
[2019-04-20] MEDS ORDERED: GLUCOPHAGE1000 MG PO (10:09)
[2019-04-20] MEDS ORDERED: LEVAQUIN 500 M500 M5 PO (10:10)
[2019-04-20 10:47] VITALS: BP 129/80
--- NOTE | 2019-04-20 11:17 | NUR ---
ASSUMED PATIENT CARE AT SHIFT CHANGE, ALERT AND ORIENTED X4, VSS AND DENIES ANY CP OR DISCOMFORT. DISCHAGRE AND MEDICATIONS INSTRUCTIONS GIVEN TO PATIENT AND SHE VERBALIZED UNDERSTANDING. PATIENT DISCHARGED HOME.
--- NOTE | 2019-04-20 11:30 | HC ---
[facility] [place] [address] CONSULTATION Name: GILES CORTES Room #: 213-P [facility] IN M.R.#: [id number] Admission: 04/15/19 Attend Phys: Ana Green MD Discharge: 04/20/19 Date of : 70 Report #: [id number] THIS REPORT FOR: //name// CC: Dr. Veronique Green Physician staff DATE OF SERVICE: 04/19/2019 ENDOCRINE CONSULTATION NOTE CONSULTING PHYSICIAN: Dr. Green. REASON FOR CONSULTATION: Uncontrolled type 2 diabetes mellitus. HISTORY OF PRESENT ILLNESS: This is a 48-year-old female patient whose medical background is significant for multiple medical issues including type 2 diabetes mellitus, coronary artery disease, hypertension, hyperlipidemia, who was admitted on 04/15/2019 with complaints pertaining to urosepsis. When questioned about her diabetes history, the patient indicated that she has had for many years and that her most recent antidiabetic regimen consisted of Lantus insulin 14 units q.p.m. in addition to metformin twice a day. However, she acknowledged that she does not monitor her blood glucose values whatsoever at home. She does not appreciate symptoms of hypoglycemia affecting her often. The patient is not aware of issues pertaining to diabetic retinopathy or nephropathy, but has occasional issues with numbness and tingling affecting both hands and feet. The patient is known to have CAD and is actually being planned for a CABG next Wednesday. The patient is known to have hypertension and is treated for this with metoprolol. She is known to have hyperlipidemia and is treated for this with atorvastatin. REVIEW OF SYSTEMS: CONSTITUTIONAL: Fatigue, tiredness, subjective fever, occasional chills. No major changes in body weight. HEENT: Negative for sinus pain, ear pain, drainage. PULMONARY: Occasional shortness of breath and cough, but no hemoptysis. CARDIAC: Occasional chest discomfort, palpitations, but no syncope or presyncope. GASTROINTESTINAL: Intermittent issues with nausea, but no vomiting, abdominal discomfort, bloating. NEUROLOGY: Negative for loss of consciousness, headaches, seizure activity, but noted for intermittent difficulties with numbness and tingling affecting both [facility] [address] [place] [address] CONSULTATION Name: GILES CORTES Room #: 213-P [facility] IN M.R.#: [id number] Admission: 04/15/19 Attend Phys: Ana Green MD Discharge: 04/20/19 Date of : 70 Report #: [id number] hands and feet. PSYCHIATRIC: Stable mood. No hallucinations. No delusions. SKIN: Negative for ulceration, rash, or major other abnormalities. Otherwise, review of systems noncontributory and as in HPI. PAST MEDICAL HISTORY: 1. Type 2 diabetes mellitus. 2. Hypertension. 3. Hyperlipidemia. 4. Coronary artery disease, history of [place]. 5. Depression and anxiety. 6. GERD. PAST SURGICAL HISTORY: Tonsillectomy, cholecystectomy, hysterectomy. OUTPATIENT MEDICATIONS: Atorvastatin 40 mg at bedtime, aspirin 81 mg daily, Effexor XR 75 mg daily, metformin 1000 mg b.i.d., Lantus insulin 14 units at bedtime, metoprolol 25 mg daily, famotidine 20 mg b.i.d., magnesium daily, vitamin D3 5000 units daily, vitamin B complex. ALLERGIES: No known drug allergies. FAMILY HISTORY: Noncontributory. SOCIAL HISTORY: The patient is an everyday smoker about 1-1/2 packs. Denies use of alcohol or illicit drugs. PHYSICAL EXAMINATION: GENERAL: Pleasant female patient who is not in apparent pain or distress. VITAL SIGNS: Blood pressure is 131/86 mmHg, heart rate is 93 beats per minute, respiration is 16 per minute, temperature 36.8 degrees. CONSTITUTIONAL: She appears comfortable, not in apparent distress. HEENT: Anicteric sclerae. Intact extraocular motions. NECK: Supple, without JVD, carotid bruits or lymphadenopathy. I do not appreciate thyromegaly. CHEST: Clear to auscultation with good air entry bilaterally. No wheeze or crackles with resonant percussion noted over both lung ayala. HEART: Regular rate and rhythm without murmurs or gallops. ABDOMEN: Soft and lax without tenderness or organomegaly. She has active bowel sounds. EXTREMITIES: Lower extremity exam shows trace ankle edema. Palpable pedal pulses. No skin ulceration or other deformities. NEUROLOGIC: Awake, alert and oriented to time, place and person. The remainder of her examination is nonfocal. PSYCHIATRIC: Pleasant, interactive, appropriate. Normal mood and affect. [address] [address] CONSULTATION Name: GILES CORTES Room #: 213-P DIS IN M.R.#: [id number] Admission: 04/15/19 Attend Phys: Ana Green MD Discharge: 04/20/19 Date of : 70 Report #: [id number] SKIN: No ulceration, discoloration rash or other major abnormalities. LABORATORY DATA: Blood glucose values since arrival has fluctuated between the mid 100 to mid 200 mg/dL range. Sodium 141, potassium 3.6, chloride 102, CO2 32, anion gap 7, BUN 12, creatinine 0.7, AST 35, total bilirubin 0.9, calcium 8.8, phosphorus 3.8, magnesium 1.8, alkaline phosphatase 203, total protein 7.2, albumin 3.1, GFR 89. Lactic acid is 1.0. Troponin is less than 0.06. Total cholesterol 117, triglycerides 115, HDL 20, LDL 74. White blood count 6.8, hemoglobin 11.4, hematocrit 35.1 and platelets 140. TSH is 1.017. Hemoglobin A1c on 03/29/2019 was 8.6%. ASSESSMENT AND PLAN: 1. Type 2 diabetes mellitus. The patient has had historically suboptimally controlled type 2 diabetes mellitus and this had been associated with issues of mild intermittent peripheral neuropathy as well as coronary artery disease. The patient continues to invest little effort in managing her diabetes, namely in the fact that she does not monitor her blood glucose whatsoever at home. 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 With the patient's open heart surgery, in less than a week, I believe that therapeutic stability is important to keep in the sense that the patient might not have ample time for therapeutic response with a newly started agents. That said, I will still utilize both Lantus insulin and metformin as the mainstay of therapy, I will consolidate her Lantus insulin therapy to 18 units q.p.m. and resume metformin at 1000 mg b.i.d. The patient was strongly advised to monitor her blood glucose at home, so as to have a fair assessment of her control and be able to adjust her regimen as needed, which she agrees with. 2. Hyperlipidemia: The patient does not have hyperlipidemia and is on atorvastatin therapy and tolerates it well. She was counseled about the importance of maintaining adequate lipid control in the setting of active type 2 diabetes mellitus and coronary artery disease. 3. Hypertension. The patient's level of blood pressure control is adequate on the current regimen. She is to continue the same. I certainly appreciate the opportunity to participate in the care of Dr. Green's patient. <ELECTRONICALLY SIGNED> By: Kirstie Brock MD 04/20/19 1130 1213 [id number] Kirstie Brock MD /nt
--- NOTE | 2019-04-25 10:12 | H ---
[facility] [place] [address] HISTORY AND PHYSICAL Name: GILES CORTES Room #: 213-P [facility] IN M.R.#: [id number] Admission: 04/15/19 Attend Phys: Ana Green MD Discharge: 04/20/19 Date of : 70 Report #: [id number] THIS REPORT FOR: //name// CC: PATRICE CHACON FAM unknown Ana Green DATE OF SERVICE: 04/15/2019 CHIEF COMPLAINT: 1. Shortness of breath, progressively worsening for today. 2. Chills and sweats and overall fatigue started yesterday evening. HISTORY OF PRESENT ILLNESS: The patient is a very pleasant 48-year-old female with poorly controlled diabetes mellitus type 2 and 1 pack per day smoking history, recently had a non-ST elevation VT and was diagnosed with 3-vessel coronary artery disease. The patient was scheduled to get an open heart surgery this coming Wednesday on 04/17/2019, however, Wednesday, the patient started having some chills and the patient denies any fever; however, the family members informed that she had chills and sweats and decreased energy and a patient felt like she had same symptoms as before every time when she had sepsis. The patient was recently diagnosed with UTI and sepsis as well 3 weeks ago and was diagnosed with E. coli urinary tract infection. The patient informs me that she has not had any chest pain or palpitations, just shortness of breath, and extreme weakness. The patient did have some orthopnea, but denies any cough or sputum production or hemoptysis. Denies any nausea, vomiting, diarrhea, hematochezia or melena. The patient informs me that she has had recurrent urinary tract infection and sepsis and that she has had workup done; however, not been diagnosed to have any underlying risk factors other than poorly controlled diabetes mellitus type 2. The patient denies any weakness or numbness of any part of the body, but just overall generalized weakness. The patient has not had any exposure to infection as well. PAST MEDICAL HISTORY: Significant for, 1. Very poorly controlled diabetes mellitus type 2. 2. Hypertension. 3. Three-vessel coronary artery disease. 4. Hyperlipidemia. 5. Vitamin B12 deficiency. 6. Nicotine dependence. 7. Possible chronic obstructive pulmonary disease. PAST SURGICAL HISTORY: 1. Total abdominal hysterectomy and bilateral salpingo-oophorectomy. 2. Tonsillectomy. 3. Cholecystectomy. [address] [address] HISTORY AND PHYSICAL Name: GILES CORTES Room #: 213-P [facility] IN M.R.#: [id number] Admission: 04/15/19 Attend Phys: Ana Green MD Discharge: 04/20/19 Date of : 70 Report #: [id number] FAMILY HISTORY: Father had pacemaker and had heart condition. Mother had diabetes mellitus and mental health problems. The patient's emergency contact is Tegan Hinkle, . ALLERGIES: The patient has no known drug allergies. PERSONAL AND SOCIAL HISTORY: Tobacco 1+ pack per day. Denies any alcohol or recreational drug use. Lives at home with her and the patient is full code. PHYSICAL EXAMINATION: VITAL SIGNS: Temperature 37.6, heart rate 132, respirations 34, blood pressure 127/76, pulse oximeter 97% on 2 liters of oxygen by nasal cannula when the patient presented to the Emergency Room; however, at the time of examination, she had a temperature of 38.1 and a heart rate of 119/73, respirations 14 and pulse ox 97% on 2 liters of oxygen by nasal cannula. GENERAL: Alert and oriented to time, place and person, very pleasant 48-year-old female who recognized me from her last day of hospital stay recent hospitalization when I had seen her, the patient informs me that it just this morning, she started feeling really bad and even though her has insisting her to come to the hospital since yesterday but yesterday, she only had some chills and sweats, but shortness of breath got progressively worse today. The patient also has had weight gain as per her cousin sister since that time, she was discharged from here and review of systems also positive for besides weight gain is also positive for a decreased appetite and decreased activity level with overall weakness. VITAL SIGNS: Please see the vital signs above. The patient has flushed facial appearance because of the fever, but otherwise in no acute distress. HEENT: Normocephalic and atraumatic. Pupils equally round, reactive to light. Conjunctivae are clear. Sclerae are nonicteric. Oropharynx is clear. Mucous membranes moist. NECK: Supple, no JVD, no lymphadenopathy. HEART: S1, S2 regular with a soft systolic murmur noted. LUNGS: Clear to auscultation with distant breath sounds without any crackles or wheezes. ABDOMEN: Soft, nontender, nondistended, normal active bowel sounds. EXTREMITIES: No edema noted. NEUROLOGIC: Nonfocal. LABORATORY DATA: Significant for an elevated lactic acid level of 2.7, which had normalized to 1.0 after initial management in the ER. Urinalysis with pH 6.0, specific gravity 1.015, protein trace, 2+ blood. Urine nitrite positive, leukocyte esterase 2+, wbc's greater than 25 __seen, bacteria greater than 30. [address] [place] [address] HISTORY AND PHYSICAL Name: GILES CORTES Room #: 213-P [facility] IN M.R.#: [id number] Admission: 04/15/19 Attend Phys: Ana Green MD Discharge: 04/20/19 Date of : 70 Report #: [id number] Hematology indicates WBC 9, hemoglobin 13, hematocrit 39.7, platelet count 161 and segmented neutrophils 93%. Chemistries indicate sodium 139, potassium 4.7, chloride 102, bicarbonate 29, anion gap 8, BUN 7, creatinine 0.7, estimated GFR 89. Serum glucose is 223, AST 35, ALT 19, alkaline phosphatase 203. Troponin I is less than 0.06. Total protein is 7.2 and albumin 3.1. Chest x-ray indicates no acute cardiopulmonary process and a normal heart size. Blood cultures and urine culture have been sent from the Emergency Room and the electrocardiogram indicates sinus tachycardia, borderline repolarization changes, otherwise unremarkable. The patient had a repeat troponin done and it was less than 0.06 at the time of admission and 0.096, 8 hours later. ASSESSMENT AND PLAN: 1. Sepsis and infection with possible pyelonephritis. 2. Recent Escherichia coli infection for urinary tract. 3. Recent non-ST elevation myocardial infarction with severe 3-vessel coronary artery disease. 4. Ischemic cardiomyopathy with ejection fraction of 40%. 5. Poorly controlled diabetes mellitus type 2. 6. Thrombocytopenia. 7. Coronary artery disease. 8. Hyperlipidemia. 9. Obesity with body mass index of 32.8. 10. Full code. 11. Deep venous thrombosis prophylaxis with heparin and GI prophylaxis with Pepcid. PLAN: 1. The patient has been started on Zosyn in the emergency room. E. coli, sensitivity was reviewed from past hospitalization. However, instead of monotherapy, we will use broad-spectrum antibiotic as the patient has sepsis. Fluids were given with caution and lactic acid improved and because of the setting of underlying ischemic cardiomyopathy, the patient, however, was noted to have hypotension, so many fluid boluses were written. We will consider starting Levophed if the map is less than 60. 2. Cardiology and CTs has been consulted as the patient has severe 3-vessel coronary artery disease and is scheduled to get an open heart surgery on Wednesday. 3. Resume her home medications except hold antihypertensives for a systolic blood pressure being low. The patient actually was transferred to ICU because of the hypotension noted on the tele floor. [facility] [address] [place] [address] HISTORY AND PHYSICAL Name: GILES CORTES Room #: 213-P [facility] IN M.R.#: [id number] Admission: 04/15/19 Attend Phys: Ana Green MD Discharge: 04/20/19 Date of : 70 Report #: [id number] 4. For diabetes, we will do Accu-Cheks q.i.d. a.c. and at bedtime and plan of care have been discussed with the patient and her who was at the bedside initially and then her cousin and a durable power of workers compensation defense attorney for health as well as emergency contact, Tegan Hinkle. 5. For thrombocytopenia, we will continue to monitor. 6. For nicotine dependence, the patient apparently does not really want any nicotine patch and so we will continue to monitor and if she has any withdrawal symptoms, then we will use nicotine patch. <ELECTRONICALLY SIGNED> By: Ana Green MD 04/25/19 1012 [id number] Ana Green MD /nt
[2019-04-25] MEDS ORDERED: ASPIR 8181 M1 PO (15:13)
[2019-04-25] MEDS ORDERED: LIPITOR40 MG PO (15:13)
[2019-04-25] MEDS ORDERED: FUROSEMIDE 40 M40 MG PO (15:15)
[2019-04-25] MEDS ORDERED: POTASSIUM20 PO (15:17)
[2019-04-25] MEDS ORDERED: GLUCOPHAGE1000 MG PO (15:17)
[2019-04-25] MEDS ORDERED: FLOMAX0.4 MG PO (15:18)
[2019-04-25] MEDS ORDERED: MAGNESIUM250 M1 PO (15:19)
--- NOTE | 2019-05-02 13:07 | HC ---
[facility] [place] [address] CONSULTATION Name: GILES CORTES Room #: 213-P [facility] IN M.R.#: [id number] Admission: 04/15/19 Attend Phys: Ana Green MD Discharge: 04/20/19 Date of : 70 Report #: [id number] THIS REPORT FOR: //name// CC: PATRICE AVILES FAM unknown Ana Green DATE OF SERVICE: 04/16/2019 REASON FOR CONSULTATION: We were asked to see the patient by Dr. Workman and the medical people. HISTORY OF PRESENT ILLNESS: The patient is a 48-year-old with coronary artery disease, who we have on the schedule for surgery on 04/17/2019. Unfortunately, it seems that the patient was admitted with urosepsis. The patient has a history of urosepsis and had an admission to [facility] in mid-February and to this institution in late February. At this institution, the patient suffered a myocardial infarct when she occluded the right coronary artery. Cardiac catheterization by Dr. Lee revealed severe 3-vessel disease including a total occluded right with left to right collateral distal filling. Left ventricular function was satisfactory to my recollection at that time. The patient appeared in the Emergency Department yesterday with complaints of shortness of air, chest pain, body aches, nausea and stating that she felt the way she did when she was septic. The patient has a history of recurrent urinary tract infections causing the sepsis. The last urinary culture indicated E. coli, for which she was treated with Cipro. PAST MEDICAL HISTORY: Also significant for hypertension, hyperlipidemia, diabetes mellitus. SOCIAL HISTORY: Positive for smoking. MEDICATIONS AT HOME: Includes atorvastatin and aspirin. The patient also uses metformin and insulin, metoprolol. ALLERGIES: None known. FAMILY HISTORY: Not contributory. REVIEW OF SYSTEMS: GENERAL: The patient felt poorly, but denied fever. EYES: No eye pain or visual change. HENT: No headache, hearing change, drainage from the ears or nose. [facility] [address] [place] [address] CONSULTATION Name: GILES CORTES Room #: 213-[facility] IN ..#: [id number] Admission: 04/15/19 Attend Phys: Ana Green MD Discharge: 04/20/19 Date of : 70 Report #: [id number] RESPIRATORY: Some shortness of breath with air. No cough or hemoptysis. CARDIAC: Some chest pain. No palpitations. GASTROINTESTINAL: No nausea. No vomiting. No abdominal pain. GENITOURINARY: Denies burning, frequency, urgency. MUSCULOSKELETAL: Generalized body aches. SKIN: No rash or infection. NEUROLOGIC: No focal motor or sensory dysfunction, but the patient wants to sleep all the time. PHYSICAL EXAMINATION: VITAL SIGNS: This morning temperature 37.5 heart rate 100, sinus; blood pressure 134/84, O2 sat 94 on 2 liters. HEENT: No scleral icterus. No arcus. The patient has a chris complexion. NECK: No mass. No bruit. CHEST: Clear. HEART: Rhythm somewhat rapid. No murmurs audible. ABDOMEN: Soft. No tenderness. No mass. EXTREMITIES: No clubbing, cyanosis or edema, 2+ popliteal pulses. SCDs are on and I did not examine the legs today. NEUROLOGIC: The patient seems to move all extremities, but she is sleepy. She does respond to command and awakens when prompted and states that she is just tired and needs to sleep. IMPRESSION: The patient has known coronary artery disease. Clearly in the ____ of urosepsis, we are not going to take the patient to the operating room for what is elective coronary artery bypass surgery. The patient is currently on antibiotics and we will need to decide timing of surgery when the infection has been appropriately treated. We will follow the patient with you. Thank you for the consult. <ELECTRONICALLY SIGNED> By: Indra Lindsey MD 05/02/19 1307 0901 1033 Indra Lindsey MD /nt
== END 2019-04-20 11:05 | disposition home or self-care (01) | DRG 871 ==
LOC: ER 11:15 → 2N 13:21 → EROBS 13:21 → ICU 13:21 → 3W 15:42 → ICU 18:30 → 2N 04-17 20:00
PROVIDERS: Internal Medicine Geriatric Medicine; Nurse Practitioner Adult Health; Nurse Practitioner Family; ADMIT Internal Medicine
DX: A41.9 Sepsis, unspecified organism (principal); I21.4 Non-ST elevation (NSTEMI) myocardial infarction; N39.0 Urinary tract infection, site not specified; I10 Essential (primary) hypertension; E78.5 Hyperlipidemia, unspecified; F32.9 Major depressive disorder, single episode, unspecified; F41.9 Anxiety disorder, unspecified; I25.10 Atherosclerotic heart disease of native coronary artery without angina pectoris; K21.9 Gastro-esophageal reflux disease without esophagitis; I25.5 Ischemic cardiomyopathy; D69.6 Thrombocytopenia, unspecified; E66.9 Obesity, unspecified; E78.00 Pure hypercholesterolemia, unspecified; E87.6 Hypokalemia; I50.9 Heart failure, unspecified; K59.00 Constipation, unspecified; R33.9 Retention of urine, unspecified; E11.65 Type 2 diabetes mellitus with hyperglycemia; I25.2 Old myocardial infarction; Z90.49 Acquired absence of other specified parts of digestive tract; Z90.710 Acquired absence of both cervix and uterus; Z68.32 Body mass index [BMI] 32.0-32.9, adult; Z82.49 Family history of ischemic heart disease and other diseases of the circulatory system; Z90.722 Acquired absence of ovaries, bilateral; Z83.3 Family history of diabetes mellitus
CPT/HCPCS: 10078; 10081

== ENCOUNTER 2019-04-27 05:54 | Inpatient (IN) | payer BC, OTHER ==
[~2019-04-27] VITALS: Ht 165.1 cm; Wt 93.6 kg
[2019-04-27] VITALS (32 sets, daily range): BP systolic 89–121; BP diastolic 54–81
[~2019-04-27 05:54] MED LIST changes: +ASPIR 8181 M1 PO; +FLOMAX0.4 MG PO; +FUROSEMIDE 40 M40 MG PO; +K-DUR 20 MEQ T20 MEQ PO; +LASIX 40 MG TAB40 MG PO; +LEVAQUIN 500 M500 M5 PO; +POTASSIUM20 PO
[2019-04-27 07:27] LABS: HEMATOCRIT 38.7 % (37.0-47.0); HEMOGLOBIN 12.8 gm/dL (12.0-15.0); MCH 32.9 pg (26.0-34.0); MCV 99.7 fL (80.0-100.0); RBC 3.88 mil/uL (4.20-5.00); RDW 14.9 % (10.5-14.5); WBC 6.6 thou/uL (4.0-11.0)
[2019-04-27 07:34] LABS: CALCIUM 9.6 mg/dL (8.5-10.1); CREATININE 0.9 mg/dL (0.6-1.0); POTASSIUM 4.1 mmol/L (3.5-5.1)
[2019-04-27 13:18] LABS: HEMATOCRIT 25.7 % (37.0-47.0); MCH 32.2 pg (26.0-34.0); MCHC 32.3 g/dL (28.0-37.0); MCV 99.6 fL (80.0-100.0); RBC 2.58 mil/uL (4.20-5.00); RDW 14.8 % (10.5-14.5); WBC 18.6 thou/uL (4.0-11.0)
[2019-04-27 13:20] LABS: HEMOGLOBIN 8.3 gm/dL (12.0-15.0)
[2019-04-27 13:31] LABS: APTT 32.6 Seconds (24.5-32.8); FIBRINOGEN 208.5 mg/dL (210-360); PROTIME 14.2 Seconds (9.3-11.4)
[2019-04-27 13:33] LABS: INR 1.4
[2019-04-27 14:04] LABS: POC BE 3 mmol/L (-2.0 to +3.0); POC CA IONIZED 5.2 mg/dL (4.5-5.3); POC GLUCOSE 141 mg/dL (70-99); POC HCO3 26.8 mmol/L (22.0-26.0); POC HEMOGLOBIN 8.8 g/dL (12.0-15.0); POC POTASSIUM 2.9 mmol/L (3.5-5.1); POC SODIUM 141 mmol/L (136-145); POC pCO2 37.5 mmHg (35.0-45.0); POC pH 7.462 (7.360-7.450)
[2019-04-27 14:04] LABS: POC BE 4 mmol/L (-2.0 to +3.0); POC GLUCOSE 133 mg/dL (70-99); POC HCO3 27.5 mmol/L (22.0-26.0); POC HEMOGLOBIN 9.5 g/dL (12.0-15.0); POC POTASSIUM 2.9 mmol/L (3.5-5.1); POC SODIUM 140 mmol/L (136-145); POC pCO2 38.7 mmHg (35.0-45.0)
[2019-04-27 14:05] LABS: POC BE 5 mmol/L (-2.0 to +3.0); POC CA IONIZED 4.4 mg/dL (4.5-5.3); POC GLUCOSE 147 mg/dL (70-99); POC HEMOGLOBIN 8.8 g/dL (12.0-15.0); POC SODIUM 139 mmol/L (136-145); POC pCO2 41.3 mmHg (35.0-45.0); POC pH 7.454 (7.360-7.450)
[2019-04-27 14:05] LABS: POC BE 6 mmol/L (-2.0 to +3.0); POC CA IONIZED 4.3 mg/dL (4.5-5.3); POC GLUCOSE 171 mg/dL (70-99); POC HCO3 30.3 mmol/L (22.0-26.0); POC HEMOGLOBIN 9.2 g/dL (12.0-15.0); POC POTASSIUM 3.3 mmol/L (3.5-5.1); POC SODIUM 137 mmol/L (136-145); POC pCO2 45.9 mmHg (35.0-45.0); POC pH 7.428 (7.360-7.450)
[2019-04-27 14:05] LABS: POC BE 8 mmol/L (-2.0 to +3.0); POC CA IONIZED 4.6 mg/dL (4.5-5.3); POC GLUCOSE 281 mg/dL (70-99); POC HCO3 31.2 mmol/L (22.0-26.0); POC HEMOGLOBIN 11.9 g/dL (12.0-15.0); POC POTASSIUM 4.3 mmol/L (3.5-5.1); POC SODIUM 135 mmol/L (136-145); POC pH 7.501 (7.360-7.450)
[2019-04-27 14:05] LABS: POC BE 6 mmol/L (-2.0 to +3.0); POC CA IONIZED 4.4 mg/dL (4.5-5.3); POC GLUCOSE 136 mg/dL (70-99); POC HCO3 29.8 mmol/L (22.0-26.0); POC HEMOGLOBIN 9.2 g/dL (12.0-15.0); POC POTASSIUM 3.4 mmol/L (3.5-5.1); POC SODIUM 139 mmol/L (136-145); POC pCO2 41.5 mmHg (35.0-45.0); POC pH 7.464 (7.360-7.450)
[2019-04-27 14:05] LABS: POC BE 5 mmol/L (-2.0 to +3.0); POC CA IONIZED 4.7 mg/dL (4.5-5.3); POC GLUCOSE 203 mg/dL (70-99); POC HCO3 29.4 mmol/L (22.0-26.0); POC HEMOGLOBIN 11.2 g/dL (12.0-15.0); POC POTASSIUM 3.2 mmol/L (3.5-5.1); POC SODIUM 138 mmol/L (136-145); POC pCO2 43.4 mmHg (35.0-45.0); POC pH 7.439 (7.360-7.450)
[2019-04-27 14:05] LABS: POC BE 6 mmol/L (-2.0 to +3.0); POC CA IONIZED 4.5 mg/dL (4.5-5.3); POC GLUCOSE 239 mg/dL (70-99); POC HCO3 29.7 mmol/L (22.0-26.0); POC HEMOGLOBIN 11.6 g/dL (12.0-15.0); POC POTASSIUM 3.6 mmol/L (3.5-5.1); POC SODIUM 134 mmol/L (136-145); POC pCO2 38.6 mmHg (35.0-45.0); POC pH 7.494 (7.360-7.450)
[2019-04-27 14:06] LABS: POC BE 4 mmol/L (-2.0 to +3.0); POC CA IONIZED 4.2 mg/dL (4.5-5.3); POC GLUCOSE 127 mg/dL (70-99); POC HCO3 27.5 mmol/L (22.0-26.0); POC HEMOGLOBIN 9.9 g/dL (12.0-15.0); POC POTASSIUM 3.5 mmol/L (3.5-5.1); POC SODIUM 140 mmol/L (136-145); POC pCO2 35.8 mmHg (35.0-45.0); POC pH 7.495 (7.360-7.450)
--- NOTE | 2019-04-27 14:55 | NUR ---
ARRIVED FROM OR. SEE FLOWSHEET. PT MONITORED 1 TO 1. LAB SENT. + BILATERAL BS.
[2019-04-27 15:09] LABS: HEMATOCRIT 31.5 % (37.0-47.0); MCH 32.6 pg (26.0-34.0); MCHC 32.8 g/dL (28.0-37.0); MCV 99.4 fL (80.0-100.0); RBC 3.17 mil/uL (4.20-5.00); RDW 15.1 % (10.5-14.5); WBC 27.6 thou/uL (4.0-11.0)
[2019-04-27 15:13] LABS: HEMOGLOBIN 10.4 gm/dL (12.0-15.0)
[2019-04-27 15:18] LABS: CALCIUM 8.8 mg/dL (8.5-10.1); CREATININE 0.7 mg/dL (0.6-1.0); MAGNESIUM 2.3 mg/dL (1.8-2.4); POTASSIUM 4.4 mmol/L (3.5-5.1)
[2019-04-27 15:21] LABS: BE(vivo) -4.6 mmol/L (-2 to +3); pH 7.328 (7.360-7.450); sO2 98.2 % (92.0-98.0)
[2019-04-27 15:24] LABS: APTT 33.1 Seconds (24.5-32.8); INR 1.1; PROTIME 11.9 Seconds (9.3-11.4)
--- NOTE | 2019-04-27 15:30 | NUR ---
EXECUTIVE CREATIVE DIRECTOR HERE. UPDATE GIVEN. 1545 DR. NOLASCO HERE UPDATE GIVEN EKG SHOWN TO DR. NOLASCO. NO NEW ORDERS.
[2019-04-27 15:33] LABS: HCO3 23.2 mmol/L (22.0-26.0); PCO2 VENOUS 51.6 mmHg (41.0-51.0); PO2 VENOUS 40.7 mmHg (35.0-45.0)
--- NOTE | 2019-04-27 16:20 | NUR ---
SVR 1350 CVP DOWN 12 . SBP 90S. ALBUMIN WIDE OPEN 1745 NEOSYNEPRINE INCREASED SVR 480 BP 83/57. CURRENTLY AT 75MCG WITH GOOD RESPONSE 1844 DR. CROWLEY HERE. UPDATE GIVEN NO NEW ORDERS T 37.6 FAN ON, COVERS OFF 193 SVR 456 SBP 90 MACI INCREASED TO 100/MCG WITH GOOD RESULTS 2100 SVR 480 HOB RAISED TO 45 DEGREES WITH GOOD RESULTS. SVR CAME UP TO 1100 PT ABLE TO FOLLOW ALL COMMANDS AND LIFT HEAD OFF BED. WEANING TRIAL BEGUN. SEE RT NOTATIONS FOR WEANING PARAMETERS. REPORT GIVEN TO ONCOMING SHIFT.
--- NOTE | 2019-04-27 16:55 | NUR ---
CM ASSESSMENT: CASE OPENED FOR DC PLANNING. CLINICAL INFO REVIEWED. 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 PT IS S/P CABG X6 TODAY AND JUST A FEW HOURS OUT OF THE OR, ON VENT. PT LIVES WITH SPOUSE, INDEPENDENT WITH ADLS, NO DME. WILL FOLLOWO GLADYS RODRIGUEZ AND ASSIST WITH COORDINATION OF DC PLAN.
--- NOTE | 2019-04-27 17:00 | NUR ---
DR. PEREZ PA HERE. MS CHEST TUBES CLOTTING OFF. PA SUCTIONED THEM AND NOW GOOD SANQUINOUS FLOW. WILL MONITOR CLOSELY. DR. CROWLEY ALSO HERE.
--- NOTE | 2019-04-27 17:48 | EKG ---
[place] [address] [facility] [place] [address] ELECTROCARDIOGRAM REPORT Name: GILES CORTES Room #: 247-P ADM IN M.R.#: [id number] Admission: 04/27/19 Attend Phys: Indra Lindsey MD Discharge: Date of : 70 Report #: [id number] THIS REPORT FOR: //name// [facility] Test Date: 2019-04-27 Test Time: 15:13:38 Pat Name: GILES CORTES Department: Room: [facility] Gender: F Anvil Worker: Gabi RIVAS : 1970 Requested By: Darell Bowden Order Number: [id number] MD: Garrett Jenkins Measurements Intervals [place] Rate: 96 P: 50 AR: 155 QRS: 9 QRSD: 102 T: -85 QT: 383 QTc: 484 Interpretive Statements Sinus rhythm Nonspecific T wave abnormality Compared to ECG 04/17/2019 07:46:48 No significant change was found Electronically Signed On 04-27-2019 17:48:45 CDT by Garrett Jenkins [email or web address] <ELECTRONICALLY SIGNED> By: Garrett Jenkins MD, [facility] 04/27/19 1748 151 Garrett Jenkins MD, [facility] /EPI
[2019-04-27 21:24] LABS: BE(vivo) -3.9 mmol/L (-2 to +3); HCO3 21.6 mmol/L (22.0-26.0); PO2 143.7 mmHg (80.0-100.0); pH 7.339 (7.360-7.450); sO2 98.7 % (92.0-98.0)
--- NOTE | 2019-04-27 21:30 | NUR ---
REPORT RECIEVED FORM DANIELLE RN AT 2119.PT EXTUBATED AT 2129, ON FACESHIELD AT 40% FIO2. TOLERATING WITH NO SIGNS OF RESP DISTRESS. WILL CONTINUE TO MONITOR.
--- NOTE | 2019-04-27 21:48 | NUR ---
SEE CRITICAL CARE FLOW SHEET FOR NOTES AND GTT TITRATIONS.
[2019-04-28] VITALS (32 sets, daily range): BP systolic 83–135; BP diastolic 35–81
[2019-04-28 05:04] LABS: HEMATOCRIT 29.1 % (37.0-47.0); HEMOGLOBIN 9.4 gm/dL (12.0-15.0); MCH 32.2 pg (26.0-34.0); MCHC 32.3 g/dL (28.0-37.0); MCV 99.6 fL (80.0-100.0); RBC 2.93 mil/uL (4.20-5.00); RDW 15.2 % (10.5-14.5); WBC 17.3 thou/uL (4.0-11.0)
[2019-04-28 05:26] LABS: CALCIUM 8.6 mg/dL (8.5-10.1); CREATININE 0.6 mg/dL (0.6-1.0)
--- NOTE | 2019-04-28 09:16 | NUR ---
Nutrition: pt S/P CABG x 5. Received consult for diet instruction. Will followup when out of ICU/closer to D/C.
[2019-04-29] VITALS (19 sets, daily range): BP systolic 89–116; BP diastolic 54–77
--- NOTE | 2019-04-29 04:40 | NUR ---
A-LINE CLOTTED OFF,D/C PER PROTOCOL. SUTURES WAS REMOVED BY ME,GAUZE WITH PRESSURE APPLIED AT SITE,CATHETER INTACT. SHE IS WELL ROCÍO PROCEDURE.
[2019-04-29 05:28] LABS: HEMATOCRIT 26.5 % (37.0-47.0); HEMOGLOBIN 8.4 gm/dL (12.0-15.0); MCH 32.5 pg (26.0-34.0); MCHC 31.8 g/dL (28.0-37.0); MCV 102.1 fL (80.0-100.0); RBC 2.59 mil/uL (4.20-5.00); RDW 15.1 % (10.5-14.5); WBC 13.1 thou/uL (4.0-11.0)
[2019-04-29 05:38] LABS: CALCIUM 8.8 mg/dL (8.5-10.1); CREATININE 0.6 mg/dL (0.6-1.0); POTASSIUM 4.2 mmol/L (3.5-5.1)
--- NOTE | 2019-04-29 07:19 | NUR ---
No event tonight. Pt remains stable. Up in chair this am. She seems to be aziza activity well. Pain had been better control with 2 Temple. Feelin hungry this am. Slowly progressing toward goals.
--- NOTE | 2019-04-29 12:16 | NUR ---
BAZAN AND CENTRAL LINE REMOVED PER MD ORDER. PLEURAL CHEST TUBE AND PACER WIRES REMOVED PER DR. CROWLEY AT THE BEDSIDE.
--- NOTE | 2019-04-29 15:12 | NUR ---
PATIENT ALERT AND ORIENTED X4, SINUS TACHYCARDIA ON PROFESSOR OF GRAPHIC DESIGN. MIDLINE WOUND VAC INTACT. UP WITH STANDBY ASSISTANCE. PAIN CONTROLLED WITH MEDICATION. REPORT GIVEN TO ONCOMING NURSE. NO SIGNS OF ACUTE DISTRESS NOTED AT THIS TIME. WILL CONTINUE TO MONITOR.
--- NOTE | 2019-04-29 17:01 | NUR ---
PT. ARRIVED ARRIVED TO FLOOR AROUND 1600; PT. AOX4; ABLE TO AMBULATE WITH ASSISTANCE FROM WHEELCHAIR TO BED; C/O HEADACHE & L. SIDE SHOULDER PAIN; ST ON HEART MONITOR; PRN PAIN MEDICATION GIVEN; PAIN RE-ASSESMENT PT. SLEEPING; EDUCATED ABOUT PAIN MANAGEMENT; ENCOURAGE IS & DRINKING FLUIDS; ST. UNDERSTANDING; MONITORING; ASSESMENT CHARGED; FOLLOWING POC; WILL PASS ON REPORT;
[2019-04-30] VITALS (7 sets, daily range): BP systolic 81–127; BP diastolic 55–75
[2019-04-30 04:30] LABS: URINE BILIRUBIN NEGATIVE (Negative); URINE BLOOD NEGATIVE (Negative); URINE CLARITY CLOUDY; URINE COLOR YELLOW; URINE GLUCOSE-RANDOM* 1+ (Negative); URINE KETONES NEGATIVE (Negative); URINE LEUKOCYTES NEGATIVE (Negative); URINE NITRITE NEGATIVE (Negative); URINE PROTEIN (DIPSTICK) NEGATIVE (Negative); URINE SPECIFIC GRAVITY 1.025 (1.005-1.035); URINE UROBILINOGEN 0.2 E.U./dl (0.2-1.0)
--- NOTE | 2019-04-30 07:38 | NUR ---
ASSUME, CARE 1900. PT/VITALS STABLE. NO FEVER NOTED THROUGH THE SHIFT. INTERMITTENT INCISIONAL PAIN NOTED. MODERATE TOLERANCE TO ATIVITY. PROGRESSING SLOWLY WITH POC. NEEDS ENCOURAGEMENT WITH ACTIIVTY AND IS USE. ASSESSMETN CHARTED. PLAN IS CONTINUE TO HELP WITH WOUND HEALING AND PREVENT INFECTION. WILL CONTINUE TO MONITOR AND FOLLOW WITH POC
--- NOTE | 2019-04-30 11:17 | EKG ---
[address] [address] ELECTROCARDIOGRAM REPORT Name: GILES CORTES Room #: 210-P ADM IN M.R.#: [id number] Admission: 04/27/19 Attend Phys: Indra Lindsey MD Discharge: Date of : 70 Report #: [id number] THIS REPORT FOR: //name// [facility] Test Date: 2019-04-28 Test Time: 08:39:29 Pat Name: GILES CORTES Department: Room: 210 Gender: F Wild Oyster Harvester: Cherelle LEA : 1970 Requested By: Darell Bowden Order Number: [id number] MD: Ezequiel Ravi Measurements Intervals [place] Rate: 99 P: 36 DC: 142 QRS: 0 QRSD: 107 T: -47 QT: 367 QTc: 471 Interpretive Statements Sinus rhythm Inferior infarct, age indeterminate Posterior infarct, old Lateral leads are also involved Compared to ECG 04/27/2019 15:13:38 Myocardial infarct finding now present T-wave abnormality no longer present Electronically Signed On 04-30-2019 11:16:56 BUDGET CLERK by Ezequiel Ravi [email or web address] <ELECTRONICALLY SIGNED> By: Ezequiel Ravi MD 04/30/19 1116 0839 0839 Ezequiel Ravi MD /EPI
--- NOTE | 2019-04-30 17:21 | NUR ---
RECEIVED PT'S CARE AROUND 0730; PT. ON BED RESTING WITH EYES CLOSED; AWAKED WHEN CALLED NAME; DURING ASSESSMENT PT. AOX4; ST. HAVING NO PAIN; AM MEDICATIONS GIVEN; EDUCATED ABOUT THE IMPORTANCE OF HAVING MEAL ON CHAIR; ST. UNDERSTANDING; EDUCATED ABOUT GOALS THROUGH THE DAY; WALKING AT LEAST 2 TIMES AROUND THE UNIT; ST. UNDERSTANDING; PT. HAD BREAKFAST ON CHAIR; REQUESTED TO BE BACK ON BED AFTER MEAL; AROUND NOON; PT. C/O PAIN ON BACK; SBP LESS THAN 90; MAP 61; PHYSICIAN NOTIFIED; PRN ACETAMINOPHEN GIVEN; AROUND 1300 SBP ABOVE 100; PRN PAIN MEDICATION GIVEN; RE-ASSESSMENT PT. STATE 09/04; PRN MIRALAX GIVEN; ABLE TO AMBULATE FROM BED TO ROOM DOOR; C/O CHEST & BACK PAIN; WEAKNESS; PRN PAIN MEDICATION GIVEN; MONITORING; ASSESSMENT CHARGED; FOLLOWING POC; WILL PASS ON REPORT;
[2019-05-01 03:05] VITALS: BP 100/65
[2019-05-01 05:38] LABS: HEMATOCRIT 25.1 % (37.0-47.0); HEMOGLOBIN 8.1 gm/dL (12.0-15.0); MCH 32.5 pg (26.0-34.0); MCHC 32.5 g/dL (28.0-37.0); MCV 100.1 fL (80.0-100.0); RBC 2.5 mil/uL (4.20-5.00); RDW 14.7 % (10.5-14.5); WBC 8.1 thou/uL (4.0-11.0)
[2019-05-01 05:57] LABS: CALCIUM 9.4 mg/dL (8.5-10.1); CREATININE 0.7 mg/dL (0.6-1.0); POTASSIUM 3.4 mmol/L (3.5-5.1)
[2019-05-01 07:13] VITALS: BP 98/64
--- NOTE | 2019-05-01 07:51 | EKG ---
[place] [address] [facility] [address] [place] [address] ELECTROCARDIOGRAM REPORT Name: GILES CORTES Room #: 210-P ADM IN M.R.#: [id number] Admission: 04/27/19 Attend Phys: Indra Lindsey MD Discharge: Date of : 70 Report #: [id number] THIS REPORT FOR: //name// [facility] Test Date: 2019-05-01 Test Time: 07:23:49 Pat Name: GILES CORTES Department: Room: 210 P Gender: F Quarter Section Ironer: KRISTIN : 1970 Requested By: Indra Lindsey Order Number: [id number] MD: Garrett Jenkins Measurements Intervals [place] Rate: 94 P: 38 HI: 154 QRS: -10 QRSD: 104 T: -6 QT: 390 QTc: 488 Interpretive Statements Sinus rhythm Early R-wave progression Minimal diffuse ST elevation consider postoperative pericarditis Compared to ECG 04/28/2019 08:39:29 no significant change was found Electronically Signed On 05-01-2019 7:51:15 YARD COUPLER by Garrett Jenkins [email or web address] <ELECTRONICALLY SIGNED> By: Garrett Jenkins MD, [facility] 05/01/19 0751 0723 2 Garrett Jenkins MD, [facility] /EPI
[2019-05-01 11:18] VITALS: BP 99/64
[2019-05-01 15:59] VITALS: BP 103/66
--- NOTE | 2019-05-01 16:43 | NUR ---
5N cony and clinically meets criteria. 5n liason called for auth for patient. Patients insurance inactive. Patient plans for [employer] insurance. 5N to sp with adminitration regarding acceptance for post acute care.
--- NOTE | 2019-05-01 18:09 | NUR ---
ASSESSMENT CHARTED. PT ALERT AND ORIENTED. VSS. UP IN THE CHAIR THIS SHIFT. PRN PAIN MED GIVEN WITH PARTIAL RELIEF. PARTICIPATED IN PT AND OT. HAD EMESIS X1 THIS SHIFT. STERNUM PRECAUTION ENFORCED. PROGRESSING WELL TOWARD DISCHARGE GOAL. WILL CONTINUE TO MONITOR.
[2019-05-01 20:17] VITALS: BP 91/53
[2019-05-02 01:06] VITALS: BP 98/58
[2019-05-02 05:56] VITALS: BP 87/52
[2019-05-02 07:36] VITALS: BP 96/55
[2019-05-02 07:48] LABS: ABSOLUTE NEUTROPHILS 4.5 thou/uL (1.4-8.2); BASOPHILS 0.7 % (0.0-2.0); HEMATOCRIT 24.5 % (37.0-47.0); HEMOGLOBIN 8.1 gm/dL (12.0-15.0); LYMPHOCYTES 19.9 % (24.0-44.0); MCHC 33.2 g/dL (28.0-37.0); MCV 99.4 fL (80.0-100.0); MONOCYTES 8.5 % (1.0-8.0); PLATELET COUNT 169 thou/uL (150-400); POLYS 69.9 % (36.0-66.0); RBC 2.46 mil/uL (4.20-5.00); RDW 14.6 % (10.5-14.5); WBC 6.5 thou/uL (4.0-11.0)
[2019-05-02 07:55] LABS: CALCIUM 9.4 mg/dL (8.5-10.1); CREATININE 0.6 mg/dL (0.6-1.0)
--- NOTE | 2019-05-02 07:55 | NUR ---
PT RESTING QUIETLY IN ROOM, UP TO BR TO VOID WITH ASS'T, PRN PAIN MED GIVEN AT HS FOR C/O BACK AND INCISIONAL PAIN, DRESSINGS REMAIN CDI, RA AND IS TO 500, REPORT GIVEN TO NEXT SHIFT TO CON'T WITH PPOC.
--- NOTE | 2019-05-02 11:03 | NUR ---
Followup: Pt s/p CABG. Hx CAD, HTN, DM, HLD. A1C 8.6, BG was 230 better now 122. Upon visit, pt speaking with eyes closed, short responses, not really engaged in conversation. Denied need for any diet education. Wt stable from past year, BMI 32.5=obesity. Appetite fair since surgery. Possible transfer to acute rehab due to debility, chronic back pain and recent CABG. Add carb control to diet order, low nutrition risk.
[2019-05-02 11:11] VITALS: BP 93/62
--- NOTE | 2019-05-02 13:08 | O ---
[facility] [place] [address] OPERATIVE REPORT Name: GILES CORTES Room #: 210-P ADM IN M.R.#: [id number] Admission: 04/27/19 Attend Phys: Indra Lindsey MD Discharge: Date of : 70 Report #: [id number] THIS REPORT FOR: //name// CC: PATRICE Lindsey Physician staff PREOPERATIVE DIAGNOSIS: Coronary artery disease. POSTOPERATIVE DIAGNOSIS: Coronary artery disease. OPERATION: Coronary artery bypass x 5 including left internal mammary artery to left anterior descending artery, saphenous vein to diagonal, marginal 1, and marginal 2 and saphenous vein to posterior descending artery and endoscopic harvest, left greater saphenous vein. SURGEON: Indra Lindsey MD DONATION WORKER: MAIRA Skelton. ANESTHESIA: General. INDICATIONS: The patient is a 48-year-old seen for Dr. Lee. The patient was initially hospitalized with urosepsis, but sustained an inferior myocardial infarct when she occluded her right coronary artery. This was reasonably well collateralized and we were able to wait until the patient had a noninfected interval for surgery. FINDINGS AND TECHNIQUE: After general anesthesia was established, saphenous vein was harvested using an endoscopic approach and prepared for use as a conduit. Exposure was obtained through median sternotomy. Left internal mammary artery was harvested from chest wall. Pericardial well was made. Cannulation sutures were placed. Heparin was given. Aorta was cannulated. Right atrium was cannulated. Cardioplegia needle was positioned in the aortic root. Retrograde cardioplegic catheter was placed in coronary sinus. Cardiopulmonary bypass was established. The aorta was cross clamped. Antegrade and retrograde cardioplegia were given. Ice was poured into the pericardial well. The heart was stopped. During electromechanical arrest, the distal anastomoses were performed and end-to-side anastomosis was made between vein and the posterior descending artery. This was a 1.4 mm vessel and was diffusely diseased. In fact, all of the coronary arteries were diffusely diseased with some amount of calcific plaque. Cold cardioplegia was given. A separate segment of vein was sewn in end-to-side fashion to the second marginal. This was a 1.4 mm vessel. [facility] [address] [place] [address] OPERATIVE REPORT Name: GILES CORTES Room #: 210-P [facility] IN M.R.#: [id number] Admission: 04/27/19 Attend Phys: Indra Lindsey MD Discharge: Date of : 70 Report #: [id number] cardioplegia was given. Same segment of vein was sewn in [id number] fashion to the first marginal. This was a 1.5 mm vessel, but it became intramyocardial and was diffusely diseased. Cold cardioplegia was given. The same segment of vein was sewn in [id number] fashion to the first diagonal. This was another 1.5 mm vessel, but was also diffusely diseased. Cold cardioplegia was given. Left internal mammary artery was sewn in end-to-side fashion to the left anterior descending artery. This was a 1.6 mm vessel. The anastomosis was checked with the temperature technique. Cold cardioplegia was given. Two proximal anastomoses were performed. When these were complete, warm retrograde cardioplegia was given followed by warm continuous blood to the coronary sinus. When this infusion was complete, the crossclamp was removed, de-airing maneuvers were performed. The anastomoses were inspected and found to be satisfactory. As the patient warmed, nice cardiac activity resumed, chest tubes and pacing wires were placed, a marker was placed around the proximal anastomoses. When the patient was warmed, she was weaned from cardiopulmonary bypass. Venous cannula was removed. Protamine was given, the aortic cannula was removed. Flows were measured in the bypass grafts. When hemostasis was satisfactory, chest was irrigated with antibiotic solution and closed in the usual fashion. The patient was taken to the Intensive Care Unit in good condition having tolerated the procedure well. All counts reported as correct. <ELECTRONICALLY SIGNED> By: Indra Lindsey MD 05/02/19 1308 [id number] Indra Lindsey MD /nt
[2019-05-02 16:08] VITALS: BP 95/65
--- NOTE | 2019-05-02 16:40 | NUR ---
5n evaled patient and she is accepted for dc tomorrow to acute rehab. Patient working on cobra of her ins that termed.
[2019-05-02 19:18] VITALS: BP 97/57
[2019-05-03 04:29] VITALS: BP 94/57
--- NOTE | 2019-05-03 05:08 | NUR ---
PT ACQUIRED FROM JARRED TYLER AT 0300 THIS AM. PT IS SLEEPING, NO COMPLAINTS OF PAIN FOR ME, STILL NO BM; SUPPOSITORY TO BE GIVEN THIS AM, PT IS STABLE, SR ON THE MONITOR. PT TO BE TRANSFERED TO N REHAB THIS AM.
[2019-05-03 07:54] VITALS: BP 88/57
[2019-05-03 11:57] VITALS: BP 98/63
--- NOTE | 2019-05-03 13:29 | NUR ---
plan to hold dc today. plan 5n possibly in am.
--- NOTE | 2019-05-03 17:49 | NUR ---
Patients bp was low this am and patient complained of nausea early on. Zofran was given and BP medications were held. Patient got cleaned up today and walked the halls with therapy. This evening nausea and low bp are resolved. Patient has a good apetite and is eating her dinner well. She states that she feels really well this evening. No concerns.
[2019-05-03 20:04] VITALS: BP 102/55
--- NOTE | 2019-05-04 02:41 | NUR ---
ASSUMED CARE OF PATIENT AT 1900. VSS, AFEBRILE. UP TO THE BATHROOM TO VOID. BP REMAINS ABOUT WHERE IT HAS BEEN. NO S/S OF DISTRESS. TYLENOL GIVEN FOR PAIN, PATIENT STATES SHE IS TRYING TO AVOID NARCOTICS DUE TO CONSTIPATION. PROGRESSING TOWARDS POC GOALS.
[2019-05-04 03:33] VITALS: BP 102/63
[2019-05-04 08:10] VITALS: BP 93/56
[2019-05-04 12:01] VITALS: BP 93/56
--- NOTE | 2019-05-04 12:25 | NUR ---
PT CARE ASSUMED APPROX 0700. ASSESSMENT CHARTED. PT DENIES SOA. REPORTS ONLY MILD LOWER BACK PAIN AND THAT CURRENT MEDS ARE ADEQUATELY MANAGING. NONCOMPLIANT WITH I.S USE BUT REPORTS THAT SHE WILL USE AT HOME. VSS. UP WITH STEADY GAIT. WOUND VAC CHANGED OVER TO PORTABLE BY MAIRA DUMONT. ALL DSGS ARE C/D/I. DISCHARGE PAPERWORK REVIEWED WITH PT AND SHE DENIES QUESTIONS AND CONCERNS REGARDING DISCHARGE AND POST HOSPITAL CARES. IV OUT, TELE BOX OFF. WILL ESCORT PT OUT TIMELY. PT AWAITING PERSONAL TRANSPORTATION TO ARRIVE.
--- NOTE | 2019-05-09 12:00 | HC ---
[facility] [place] [address] CONSULTATION Name: GILES CORTES Room #: 210-P [facility] IN M.R.#: [id number] Admission: 04/27/19 Attend Phys: Indra Lindsey MD Discharge: 05/04/19 Date of : 70 Report #: [id number] THIS REPORT FOR: //name// CC: PATRICE Lindsey Physician staff DATE OF SERVICE: 05/01/2019 HISTORY OF PRESENT ILLNESS: The patient is a 48-year-old white female who has been readmitted now for the third time to [facility] and has a history of non-ST elevation myocardial infarction, three-vessel coronary artery disease, has been treated for urinary tract infection with sepsis. She is now undergoing coronary artery bypass grafting x 5 on 04/27/2019. She is slow with her postoperative recovery with decreased endurance, some incisional pain, neck and back pain. We are seeing her in rehabilitation medicine consultation. PAST MEDICAL HISTORY: Prior to admission to treatment for urosepsis as well as the prior hospitalizations here for UTI and sepsis. She does have diabetes mellitus type 2, hypertension, nicotine dependence, possible COPD, very poorly controlled diabetes mellitus type 2. PAST SURGICAL HISTORY: Includes, tonsillectomy, cholecystectomy. FAMILY HISTORY: Father pacemaker and heart condition. Mother had diabetes mellitus, mental health problems. ALLERGIES: No known drug allergies. SOCIAL HISTORY: Lives with who just moved to [place], [place] where he started a new job. Her plan is to stay at a friend's house. The friend is elderly and would not be able to give her any physical assistance. The house has one floor. There were two steps. REVIEW OF SYSTEMS: Complains of significant decreased endurance with attempting mobility. She has some neck and back discomfort and incisional discomfort, generalized malaise. She noted some shortness of breath with increased activity. She does have the incisional chest pain of her chest wall. No specific abdominal discomfort. She has had the recurrent urinary tract infections. Complains of lower extremity weakness, generalized. No other focal pain complaints. PHYSICAL EXAMINATION: GENERAL: She is in 48-year-old white female, lying in bed. She is in some discomfort. She notes frustration with her condition. VITAL SIGNS: Her temperature is 98.1, pulse 93, respirations 16, blood pressure [facility] [address] [place] [address] CONSULTATION Name: GILES CORTES Room #: [address] [place] [address] IN M.R.#: [id number] Admission: 04/27/19 Attend Phys: Indra Lindsey MD Discharge: 05/04/19 Date of : 70 Report #: [id number] . She has the wound VAC in place over her sternal incision. HEENT: Facies appeared to be symmetric. EXTREMITIES: Upper extremities revealed functional range of motion, strength is probably a grade 3+ to 4-/5. DTRs are trace to 1. Lower extremities, no focal calf swelling, functional range of motion, strength is probably a grade 3+ to 4-/5. She is min assist with sit to stand. Gait was 70 feet min assist without a device. Toilet transfers are min assist. She tends to fatigue very quickly. ASSESSMENT: A 48-year-old white female with the following problem list: 1. Medical complexity with generalized debilitation. 2. Multivessel coronary artery disease, status post coronary artery bypass graft x 510 31. 3. Diabetes mellitus, which has been poorly controlled. 4. Non-ST elevation myocardial infarction. 5. Hypertension. 6. Hyperlipidemia. 7. Recurrent hospitalizations with urosepsis. PLAN: Insurance will be checked regarding a short acute in-hospital inpatient rehabilitation stay. Concern is with her frequent readmissions and the goal of further improving her endurance, so she can safely return back home if she has limited assistance. Also to control diabetes and best ensure healing of her sternal wound and prevention of further complications with the multiple episodes of urosepsis. Insurance will be checked regarding a short acute in-hospital inpatient rehabilitation stay to try to further improve her overall function and medical stability, so that we can safely and successfully discharge her back to the home setting. We will be glad to follow along with you regarding rehab therapy issues. Discussion with her cousin who is a nurse shoe parts caser. <ELECTRONICALLY SIGNED> By: Heath Harrison MD 05/09/19 1200 [id number] Heath Harrison MD /nt
== END 2019-05-04 12:50 | disposition home or self-care (01) | DRG 235 ==
LOC: 2N 05:54 → TBA 05:54 → PRE 10:30 → ICU 14:54 → 2N 04-29 15:14
PROVIDERS: Anesthesiology; Internal Medicine; Nurse Practitioner Adult Health; Physician Assistant; ADMIT Surgery Vascular Surgery
PROC: 021309W Bypass Coronary Artery, Four or More Arteries from Aorta with Autologous Venous Tissue, Open Approach (ICD-10-PCS; 2019-04-27)
PROC: 5A1221Z Performance of Cardiac Output, Continuous (ICD-10-PCS; 2019-04-27)
PROC: 06BQ4ZZ Excision of Left Saphenous Vein, Percutaneous Endoscopic Approach (ICD-10-PCS; 2019-04-27)
PROC: 02100Z9 Bypass Coronary Artery, One Artery from Left Internal Mammary, Open Approach (ICD-10-PCS; 2019-04-27)
PROC: 05HY33Z Insertion of Infusion Device into Upper Vein, Percutaneous Approach (ICD-10-PCS; principal; 2019-04-29)
DX: I25.10 Atherosclerotic heart disease of native coronary artery without angina pectoris (principal); I21.4 Non-ST elevation (NSTEMI) myocardial infarction; E11.9 Type 2 diabetes mellitus without complications; I10 Essential (primary) hypertension; E78.5 Hyperlipidemia, unspecified; I25.5 Ischemic cardiomyopathy; E87.6 Hypokalemia; D64.9 Anemia, unspecified; D69.6 Thrombocytopenia, unspecified; K59.00 Constipation, unspecified; I95.9 Hypotension, unspecified; Z23 Encounter for immunization; Z90.49 Acquired absence of other specified parts of digestive tract; Z95.0 Presence of cardiac pacemaker; Z83.3 Family history of diabetes mellitus; Z79.82 Long term (current) use of aspirin; Z79.899 Other long term (current) drug therapy; Z90.722 Acquired absence of ovaries, bilateral
CPT/HCPCS: 10078; 10081; 47000; 47001; 47002; 47297; 48888; 50010; 50249; 50409; 50456; 50498; 50643; 50668; 50953; 51301; 52131; 52259; 52314; 53327; 53358; 54118; 55415; 56455; 56524; 56525; 56526; 56527; 56528; 56531; 56534; 56668; 56760; 56898; 57093; 57116; 57167; 62110; 62950; 65020; 65047; 65090; 65120; 65135